=== PATIENT | female | born 1940 | race Caucasian/White ===

== ENCOUNTER 2018-03-08 00:38 | Inpatient (IN) | payer MEDICARE, OTHER ==
[2018-03-07 14:37] LABS: INR 0.99
--- NOTE | 2018-03-07 21:38 | HISTORY AND PHYSICAL ---
DATE OF ADMISSION: March 08, 2018 IDENTIFICATION/CHIEF COMPLAINT Lainey is a 77-year-old woman with the chief complaint of right hip pain. HISTORY OF PRESENT ILLNESS Patient has a long-standing history of hip arthritis which has been debilitating and refractory to conservative care. Surgery indicated to relieve symptoms after failure of nonoperative measures. PAST MEDICAL HISTORY 1. Hypertension. 2. Occasional skipped beats. 3. Sleep apnea. 4. Remote history of bronchitis and pneumonia. 5. Mild COPD. 6. Migraine headaches. PAST SURGICAL HISTORY 1. Tonsillectomy. 2. Appendectomy. 3. Treatment of uterine prolapse. 4. Bilateral tubal ligation. ALLERGIES No known drug allergies. CURRENT MEDICATIONS 1. Lovastatin 40 mg p.o. q. day. 2. Amlodipine 5 mg p.o. q. day. 3. Furosemide 20 mg p.o. q. day. 4. Mobic 15 mg p.o. q. day. 5. Oxybutynin 5 mg p.o. q. day. 6. Zyrtec as needed. 7. Variety of vitamins. SOCIAL HISTORY Notable for significant history of smoking three packs a day for 30 years, quitting in 1990. Alcohol use is rare. She previously drank socially on a moderate basis. Denies abuse. REVIEW OF SYSTEMS Otherwise negative. FAMILY HISTORY Notable for mother with COPD and father with lung disease. PHYSICAL EXAMINATION GENERAL: Elderly female. HEENT: She is normocephalic, atraumatic. NECK: Supple. LUNGS: Clear. HEART: Regular. ABDOMEN: Soft. ORTHOPEDIC: Right hip has exquisite pain with combined flexion and rotation. She is stiff at the end range. Hip girdle strength is grossly normal. Skin envelope is intact. Calf is nontender. Neurovascular function intact distally. ASSESSMENT Right hip end-stage degenerative joint disease, progressively painful and debilitating, refractory to conservative care. PLAN Per patient request, we are going to proceed with total hip arthroplasty. Nature of the procedure, risks, benefits, the anticipated rehabilitative course reviewed. Appropriate preoperative medical clearance has been obtained. Risks of the procedure include, but are not limited to , major medical or anesthetic complication, infection, neurovascular injury, blood transfusion, stiffness, scarring, fracture, tendon rupture, instability, leg length discrepancy, implant loosening, migration, or failure, persistent or recurrent pain, need for additional surgery, and other unforeseen. She understands and wishes to proceed. Signed permit is placed in the chart. No guarantees are given or implied. [facility], [place]
[~2018-03-08] VITALS: Ht 162.6 cm; Wt 83.0 kg
[2018-03-08] VITALS (10 sets, daily range): BP systolic 114–166; BP diastolic 50–87
[~2018-03-08 00:38] MED LIST: AMLO-111 PO; CETI10CA8 PO; FURO-45 PO; LOVA40TA89 PO; MELO-207 PO; OXYB1PAT PO; ceFAZolin(*) 2GM/D5W 50ML 50 ML IVPB ONE
[2018-03-08] MEDS ORDERED: ceFAZolin(*) 2GM/D5W 50ML 50 ML IVPB ONE ×2 (08:00→08:30)
[2018-03-08] MEDS ORDERED: TRANEXAMIC AC 1000 MG/10ML SDV 1,000 MG in DEXTROSE 5% 50 ML BAG 50 ML IV ONE ×2 (08:00→09:00)
[2018-03-08] MEDS ORDERED: CELECOXIB 200 MG CAP PO ONE (08:00)
[2018-03-08] MEDS ORDERED: ACETAMINOPHEN 500 MG TAB PO ONE (08:00)
[2018-03-08] MEDS ORDERED: LIDOCAINE/SOD BICARB 8.4% SYR ID ONE (08:00)
[2018-03-08] MEDS ORDERED: cloNIDine EPIDUR INJ 100MCG/ML 40 MCG, ROPIVACAINE 0.5% 20 ML VIAL 25 ML, EPINEPHrine H... INJ ONE ×2 (08:00→09:00)
[2018-03-08] MEDS ORDERED: PREGABALIN 75 MG CAPSULE PO ONE (08:00)
[2018-03-08] MEDS ORDERED: MIDAZOLAM 2 MG/2 ML VIAL IVP PRN (08:00)
[2018-03-08] MEDS ORDERED: NORMOSOL R SOLN(*) 1000 ML BAG 1,000 ML IV PRN ×2 (08:00→18:20)
[2018-03-08] MEDS ORDERED: FAMOTIDINE 20 MG TAB PO ONE (08:00)
[2018-03-08] MEDS ORDERED: ALBUTEROL/IPRATROPIUM 3 ML NEB ONE (12:45)
--- NOTE | 2018-03-08 13:05 | RADIOLOGY IMAGING REPORT ---
FACILITY: [facility] PATIENT NAME: Lainey Thayer : 1940 MR: [id number] V: [id number] EXAM DATE: ORDERING PHYSICIAN: INDY MOSES TECHNOLOGIST: Location: [facility] Patient: Lainey Thayer : 1940 Visit/Account:[id number] Date of Sevice: 03/08/2018 CHEST PA AND LAT INDICATION: PREOP TESTING COMPARISON: None available FINDINGS: The cardiac silhouette is enlarged. There is no focal infiltrate or lobar consolidation. The lungs are hyperexpanded. There is no pneumothorax or pleural effusion. IMPRESSION: 1. Cardiomegaly and COPD are noted, no acute process is identified Report Dictated By: Martinez Lagos at 03/08/2018 1:01 PM Report E-Signed By: Martinez Lagos at 03/08/2018 1:02 PM WSN:[id number]
[2018-03-08] MEDS ORDERED: VANCOMYCIN 1 GM VIAL ONE (15:13)
[2018-03-08] MEDS ORDERED: ONDANSETRON 4 MG/2 ML VIAL ONE (18:17)
[2018-03-08] MEDS ORDERED: PROPOFOL EMUL(*) 10MG/ML 20 ML 20 ML ONE (18:17)
[2018-03-08] MEDS ORDERED: ZOLPIDEM TARTRATE 5 MG TAB PO PRN (18:20)
[2018-03-08] MEDS ORDERED: BENZOCAINE/MENTHOL 1 EACH LOZG PO PRN (18:20)
[2018-03-08] MEDS ORDERED: diphenhydrAMINE 25 MG CAP PO PRN (18:20)
[2018-03-08] MEDS ORDERED: diphenhydrAMINE 50 MG/ML VIAL IVP PRN (18:20)
[2018-03-08] MEDS ORDERED: PROMETHAZINE 25 MG/ML 1 ML AMP IVP PRN (18:20)
[2018-03-08] MEDS ORDERED: ACETAMINOPHEN 325 MG TAB PO PRN (18:20)
[2018-03-08] MEDS ORDERED: MAGNESIUM HYDROXIDE* 30ML UDCP PO PRN (18:20)
[2018-03-08] MEDS ORDERED: DIAZEPAM 5 MG TAB PO PRN (18:20)
[2018-03-08] MEDS ORDERED: FLUSH 10 ML SYR IVP PRN (18:20)
[2018-03-08] MEDS ORDERED: BISACODYL 10 MG SUPP PR PRN (18:20)
--- NOTE | 2018-03-08 18:51 | RADIOLOGY IMAGING REPORT ---
FAC[place] [facility] [place]IENT NAME: Lainey Thayer : 1940 MR: [id number] V: [id number] EXAM DATE: ORDERING PHYSICIAN: ALESIA SÁNCHEZ TECHNOLOGIST: Location: Patient: Lainey Thayer : 1940 Visit/Account:[id number] Date of Sevice: 03/08/2018 PELVIS History: Status post right hip replacement. Severe arthropathy left hip. Comparison study: None. Findings: There has been recent placement of a right total hip prosthesis. Surgical skin clips are noted. There is air in the joint space and subcutaneous tissues related to recent surgery. There is diffuse osteopenia. There are severe findings of secondary osteoarthrosis involving the left hip with severe erosion of t he left femoral head, loss of joint space as well as subchondral sclerosis and subchondral cyst forma tion. The sacroiliac joints are unremarkable. IMPRESSION: 1. Status post recent right total hip replacement. 2. Findings of what appear to be severe and very advanced changes of secondary osteoarthrosis involv ing the left hip. Report Dictated By: Harman Sands MD at 03/08/2018 6:46 PM Report E-Signed By: Harman Sands MD at 03/08/2018 6:47 PM WSN:[email or web address]
--- NOTE | 2018-03-08 19:13 | OPERATIVE REPORT 1 ---
EVENT DATE: March 08, 2018 SURGEON: Benito Rojas MD ANESTHESIOLOGIST: Spencer Ortiz MD ANESTHESIA: General plus spinal. [employer]ER [employer]YING DE[employer]MENT: [facility] Doyle PREOPERATIVE DIAGNOSIS Right hip degenerative joint disease. POSTOPERATIVE DIAGNOSIS Right hip degenerative joint disease. PROCEDURE PERFORMED Right total hip arthroplasty. ESTIMATED BLOOD LOSS 400 mL DRAINS None. SPECIMENS None. COMPLICATIONS None apparent. INDICATIONS Lainey is a 77-year-old woman with end-stage hip arthritis which has been progressively painful and debilitating, refractory to conservative care. Surgery is indicated to relieve symptoms after failure of nonoperative measures. DESCRIPTION OF PROCEDURE Patient was taken to the operating room, placed supine on the operating table. General anesthesia is induced. Antibiotics are administered IV. Spinal block is placed preop by the anesthesiologist. TXA is administered IV. Patient is positioned in the left lateral decubitus on a well-padded pegboard. All bony prominences and superficial nerves are well padded. Right hip girdle and lower extremity are prepped and draped in the usual sterile fashion for orthopedic surgery. A posterolateral approach is made to the hip, carried down through the skin and subcutaneous tissue down to the deep fascia. Fascia is incised over the tip of the trochanter, extended distally in line with the femur, proximally in line with the luis fernando fibers. Luis Fernando fibers are split bluntly. Interval between the abductor and external rotator is identified. Abductor mechanism is protected with a blunt Hohmann. Trochanteric bursa is excised. The L capsulotomy/tenotomy is performed with the horizontal limb just above the piriformis. It is carried down through the capsule, and then the external rotators and capsule were peeled from superior to inferior off the posterolateral femur and tagged with #2 Vicryl for later anatomic reattachment. The femoral head is dislocated. Severe collapse of the femoral head is noted along with end-stage arthritic change. A 1.5 cm neck cut is made consistent with preoperative templating. The femoral head is extracted. Femur is translocated anteriorly. Sienna-acetabular retractors are placed with the tips down on bone. Her bone quality is quite poor around the socket, and there are some spurs and edges of the rim that tend to easily crack and chip. The pulvinar and labrum are excised. A 44 mm reamer is used to medialize the true medial wall of the acetabulum. This is expanded in 2 mm increments up to 52 where seemingly nice rim contact is obtained. The trial is inserted, and this seems to have satisfactory fit. As this is extracted, a fragment of the posterior wall peripherally pulls away with this. It may just be osteophyte, but in order to obtain adequate capture of the cup, I decided to medialize further down to the periosteum at the level of the true medial wall of the acetabulum. This is re-expanded up to 53 mm with a reamer, and then a 54 Tritanium shell is selected to optimize bone contact, stability, and ingrowth along with a cluster shell. This is impacted in approximately 40 degrees of lateral opening and 20 degrees of anteversion using internal bony landmarks, extracorporeal guide, and the transverse acetabular ligament to guide socket placement. Adjuvant fixation with two screws directed up into the posterior superior bone is performed using standard technique. Solid fixation is achieved. Due to medialization, an offset eccentric liner is impacted into the cleaned and dried shell to restore normal offset. Attention is turned to femoral preparation. Superior neck is resected with a cookie cutter. A Charnley awl finds the canal. Tapered broaching is performed starting with an 0, working up to a size 6 where good stability of the broach is achieved. Trial reduction is performed off this. Good mu-ism of limb length and stability are achievable. In this circumstance, we are actually going to make her about a centimeter or so as the other hip is also severely collapsed and will eventually require reconstruction. More focus is placed on stability and soft tissue tension. The broach is extracted. The actual stem is impacted and seats at the same height. Trial reduction is performed with various neck lengths, and the standard neck length seems optimal for mu-ism of stability and appropriate limb length. The Aldridge taper is lavaged and dried. The Biolox head is impacted into position. The joint is reduced. Pain cocktail is infiltrated throughout the wound. The wound is copiously lavaged, and meticulous hemostasis is assured. Capsule and external rotators are repaired through drill holes in the posterolateral femur with the previously placed #2 Vicryl. Deep fascia is closed distally with #2 Ethibond, proximally with #2 Vicryl after placement of vancomycin powder deep in the wound. Derm is closed with 3-0 Vicryl and skin with surgical iveth. Xeroform is applied for a dry, sterile dressing and hip wrap. Patient is rolled supine. Abduction pillow is placed. She is awakened from anesthesia and taken to the recovery room in stable condition having tolerated the procedure well. Plan is for standard ROBERT rehab protocol, weightbearing as tolerated, and posterior hip precautions. [facility]
[2018-03-08] MEDS ORDERED: OXYB5TAB86 PO (19:45)
--- NOTE | 2018-03-08 19:53 | Hospitalist Progress Note ---
Subjective Progress Notes Subjective No cp/sob. 50cc of EBL. 1300cc of crystalloid, TXA and ephedrine given intra- op. Physical Exam Vital Signs Date Time Temp Pulse Resp B/P (MAP) Pulse Ox O2 Delivery O2 Flow Rate FiO2 03/08/18 19:00 68 96 03/08/18 18:45 20 03/08/18 12:48 Nasal Cannula 3.0 03/08/18 12:41 98.6 166/79 (108) General Appearance: Alert, Awake, No Acute Distress Cardiovascular: Regular Rate and Rhythm Respiratory: Clear to Auscultation Extremities: No Edema Assessment and Plan Problems: (1) Status post hip replacement Status: Acute Assessment & Plan: No CV/pulmonary issues. No h/o DVT/PE. The patient will be on ASA 325mg a day for 30 days after surgery for blood clot prevention. (2) Hyperlipemia Status: Chronic Assessment & Plan: Continue chronic simvastatin. (3) HTN (hypertension) Status: Chronic Assessment & Plan: Continue chronic amlodipine and furosemide with parameters. (4) OAB (overactive bladder) Status: Chronic Assessment & Plan: Continue chronic oxybutynin. Problem Qualifiers (1) Status post hip replacement: Laterality: right Qualified Codes: Z96.641 - Presence of right artificial hip joint YAHIR ADAMS MD Mar 08, 2018 19:52
[2018-03-08] MEDS: amLODIPine BESYL(*) 5 MG TAB PO SCH (21:00)
[2018-03-08] MEDS: APAP/HYDROCODONE 325/7.5 TAB PO PRN (21:54)
[2018-03-08] MEDS: LOVASTATIN 20 MG TAB PO SCH (21:55)
[2018-03-08] MEDS: OXYBUTYNIN CHL 5 MG TAB PO SCH (21:55)
[2018-03-09] VITALS (9 sets, daily range): BP systolic 105–128; BP diastolic 51–66; Ht 162.6 cm; Wt 83.0 kg
[2018-03-09] MEDS ORDERED: NS(*) 0.9% 250 ML BAG 250 ML ONE (00:03)
[2018-03-09] MEDS: ceFAZolin(*) 1 GM VIAL 1 GM in NS(*) 0.9% 100 ML ADDVANT BAG 100 ML IVPB SCH ×3 (00:31→16:13)
[2018-03-09] MEDS: CELECOXIB 200 MG CAP PO SCH ×2 (08:14→16:21)
[2018-03-09] MEDS: FUROSEMIDE 20 MG TAB PO SCH (08:17)
[2018-03-09] MEDS: APAP/HYDROCODONE 325/7.5 TAB PO PRN ×2 (08:18→23:35)
[2018-03-09] MEDS: OXYBUTYNIN CHL 5 MG TAB PO SCH ×2 (08:18→21:31)
[2018-03-09] MEDS: ASPIRIN 325 MG TAB PO SCH (08:18)
--- NOTE | 2018-03-09 11:50 | Hospitalist Progress Note ---
Subjective Progress Notes Subjective She has no complaints this morning. She had no acute events overnight. Patient Complains of: Cardiovascular: No: Chest Pain Respiratory: No: Shortness of Breath Physical Exam Vital Signs Date Time Temp Pulse Resp B/P (MAP) Pulse Ox O2 Delivery O2 Flow Rate FiO2 03/09/18 10:00 89 Nasal Cannula 3.0 03/09/18 08:24 98.5 62 16 110/51 (70) Intake and Output 03/08/18 23:59 Intake Total 1400 ml Balance 1400 ml IV Total 1400 ml # Voids 2 General Appearance: Alert, Awake, No Acute Distress, Afebrile Neuro: No Gross deficits Cardiovascular: Regular Rate and Rhythm Respiratory: No Respiratory Distress, Clear to Auscultation Psych: Alert & Oriented X3, Appropriate Mood & Affect Assessment and Plan Problems: (1) Status post hip replacement Status: Acute Assessment & Plan: No CV/pulmonary issues. No h/o DVT/PE. The patient will be on ASA 325mg a day for 30 days after surgery for blood clot prevention. (2) Hyperlipemia Status: Chronic Assessment & Plan: Continue chronic simvastatin. (3) HTN (hypertension) Status: Chronic Assessment & Plan: Continue chronic amlodipine and furosemide with parameters. (4) OAB (overactive bladder) Status: Chronic Assessment & Plan: Continue chronic oxybutynin. Exam Sepsis Risk: No Definite Risk Problem Qualifiers (1) Status post hip replacement: Laterality: right Qualified Codes: Z96.641 - Presence of right artificial hip joint CLARK PORTER [facility] Mar 09, 2018 11:50
[2018-03-09] MEDS ORDERED: HYDR-654 PO (12:16)
[2018-03-09] MEDS: amLODIPine BESYL(*) 5 MG TAB PO SCH (21:31)
[2018-03-09] MEDS: LOVASTATIN 20 MG TAB PO SCH (21:31)
[2018-03-10 03:47] VITALS: BP 114/61
[2018-03-10 06:52] VITALS: BP 153/69
[2018-03-10] MEDS: FUROSEMIDE 20 MG TAB PO SCH (08:26)
[2018-03-10] MEDS: CELECOXIB 200 MG CAP PO SCH (08:26)
[2018-03-10] MEDS: ASPIRIN 325 MG TAB PO SCH (08:26)
[2018-03-10] MEDS: OXYBUTYNIN CHL 5 MG TAB PO SCH (08:27)
--- NOTE | 2018-03-10 08:55 | Hospitalist Progress Note ---
Subjective Progress Notes Subjective She has no complaints this morning. She had no acute events overnight. Patient Complains of: Cardiovascular: No: Chest Pain Respiratory: No: Shortness of Breath Physical Exam Vital Signs Date Time Temp Pulse Resp B/P (MAP) Pulse Ox O2 Delivery O2 Flow Rate FiO2 03/10/18 08:43 84 03/10/18 06:52 97.5 72 15 153/69 (97) Nasal Cannula 2.5 Intake and Output 03/10/18 06:59 Intake Total 452 ml Balance 452 ml Intake Oral 342 ml IV Total 110 ml # Voids 5 General Appearance: Alert, Awake, No Acute Distress, Afebrile Neuro: No Gross deficits Cardiovascular: Regular Rate and Rhythm Respiratory: No Respiratory Distress, Clear to Auscultation Psych: Alert & Oriented X3, Appropriate Mood & Affect Assessment and Plan Problems: (1) Status post hip replacement Status: Acute Assessment & Plan: No CV/pulmonary issues. No h/o DVT/PE. The patient will be on ASA 325mg a day for 30 days after surgery for blood clot prevention. (2) Hyperlipemia Status: Chronic Assessment & Plan: Continue chronic simvastatin. (3) HTN (hypertension) Status: Chronic Assessment & Plan: Continue chronic amlodipine and furosemide with parameters. (4) OAB (overactive bladder) Status: Chronic Assessment & Plan: Continue chronic oxybutynin. Exam Sepsis Risk: No Definite Risk Problem Qualifiers (1) Status post hip replacement: Laterality: right Qualified Codes: Z96.641 - Presence of right artificial hip joint [facility] Mar 10, 2018 08:55
[2018-03-10] MEDS ORDERED: ASPI-757 PO (10:37)
== END 2018-03-10 13:45 | disposition home or self-care (01) | DRG 470 ==
LOC: OR 00:38 → MED 19:30
PROVIDERS: ADMIT Orthopaedic Surgery; ATTEND Orthopaedic Surgery
PROC: 5A09357 Assistance with Respiratory Ventilation, Less than 24 Consecutive Hours, Continuous Positive Airway Pressure (ICD-10-PCS; 2018-03-08)
PROC: 0SR901Z Replacement of Right Hip Joint with Metal Synthetic Substitute, Open Approach (ICD-10-PCS; principal; 2018-03-08 15:56)
DX: M16.11 Unilateral primary osteoarthritis, right hip (principal); G47.33 Obstructive sleep apnea (adult) (pediatric); I10 Essential (primary) hypertension; N32.81 Overactive bladder; Z87.891 Personal history of nicotine dependence; J44.9 Chronic obstructive pulmonary disease, unspecified; G43.909 Migraine, unspecified, not intractable, without status migrainosus; E78.5 Hyperlipidemia, unspecified
CPT/HCPCS: 36415; 71046; 72170; 85610; 86850; 86900; 86901; 94640; 97161; 97165; C1713; C1776; J0171; J0690; J0735; J1885; J2250; J2405; J2704; J2795; J3370; J7050; J7060

== ENCOUNTER 2018-03-17 16:19 | Inpatient (IN) | payer MEDICARE, OTHER ==
[~2018-03-17] VITALS: Ht 162.6 cm; Wt 83.9 kg
--- NOTE | 2018-03-17 15:55 | HISTORY AND PHYSICAL ---
DATE OF ADMISSION: March 17, 2018 IDENTIFICATION/CHIEF COMPLAINT Lainey is a 77-year-old woman with the chief complaint of right hip pain. HISTORY OF PRESENT ILLNESS Patient is nine days out from total hip arthroplasty. She was doing extremely well, discharged on , until the Wednesday following when she was in her doorway reaching for a snow shovel. She twisted and backed up and had immediate pain in the right hip region with some difficulty bearing weight. Subsequently, she was evaluated at the clinic, and radiographs revealed a periprosthetic subtrochanteric/intertrochanteric fracture of the femur with movement of the stem. Admission is indicated in preparation for revision surgery and repair of the fracture. PAST MEDICAL HISTORY, PAST SURGICAL HISTORY, FAMILY HISTORY, SOCIAL HISTORY, AND REVIEW OF SYSTEMS Entirely unchanged from the recent H and P dictated immediately prior to her operation nine days ago. MEDICATIONS The only new medications have been: 1. Hydrocodone as needed for pain. 2. Aspirin 325 mg p.o. q. day. PHYSICAL EXAMINATION GENERAL: This is a healthy female. HEENT: She is normocephalic, atraumatic. NECK: Supple. LUNGS: Clear. HEART: Regular. ABDOMEN: Soft. ORTHOPEDIC: The right hip incision has healed nicely with no signs of infection. Some swelling and bruising. Staple line remains intact. She is tender and is unable to straight leg raise. She has pain with attempted range of motion of the hip. Calves are nontender. Neurovascular function intact. IMAGING Radiographs reveals a minimally displaced fracture at about mid stem level through the subtrochanteric region best visualized at the medial cortex. The stem has subsided from its initial position. Acetabular fixation and placement are unchanged from immediate postop. ASSESSMENT Right hip periprosthetic proximal femur fracture, status post total hip arthroplasty. PLAN Will plan to revise the femoral stem to a distally fixed stem, modular reconstruction implant with concomitant cable repair and possible allograft strut grafting for the fracture. Rationale, risks, benefits, and alternatives were discussed at length with patient and family, and they strongly agree and would like to proceed. A signed permit is placed in the chart. No guarantees given or implied. [facility]
[~2018-03-17 16:19] MED LIST changes: +ASPI-757 PO; +HYDR-654 PO; +OXYB5TAB86 PO; -ceFAZolin(*) 2GM/D5W 50ML 50 ML IVPB ONE
[2018-03-17 17:04] VITALS: BP 125/60
--- NOTE | 2018-03-17 17:21 | Hospitalist Progress Note ---
Subjective Progress Notes Subjective The patient misstepped a couple of days ago and has a lot of pain in the leg that had the hip replacement. She was admitted for revision of the hip and ORIF of fracture. No cp/sob. Otherwise, doing well. Physical Exam Vital Signs Date Time Temp Pulse Resp B/P (MAP) Pulse Ox O2 Delivery O2 Flow Rate FiO2 03/17/18 17:04 98.8 91 16 125/60 (81) 91 Nasal Cannula 3.0 General Appearance: Alert, Awake, No Acute Distress Cardiovascular: Regular Rate and Rhythm Respiratory: Clear to Auscultation Extremities: No Edema Assessment and Plan Problems: (1) Status post hip replacement Status: Acute Assessment & Plan: She had a right ROBERT on 03/08 (9 days prior to admission). A couple of days ago she had a misstep and immediately had pain. Yesterday, in clinic, radiographs revealed a periprosthetic subtrochanteric/intertrochanteric fracture of the femur with movement of the stem. She is going to have revision surgery and repair of the fracture tomorrow. She has had no changes in her overall health or medical history since discharge. No cp/sob. She took ASA today, but will hold for tomorrow. She will be on ASA for DVT/PE prophylaxis. (2) HTN (hypertension) Status: Chronic Assessment & Plan: Continue chronic amlodipine and furosemide with parameters. (3) OAB (overactive bladder) Status: Chronic Assessment & Plan: Continue chronic oxybutynin. (4) Hyperlipemia Status: Chronic Assessment & Plan: Continue chronic lovastatin. Problem Qualifiers (1) Status post hip replacement: Laterality: right Qualified Codes: Z96.641 - Presence of right artificial hip joint YAHIR ADAMS MD Mar 17, 2018 17:21
[2018-03-17] MEDS ORDERED: ceFAZolin 1 GM VIAL IVP ONE (17:25)
[2018-03-17] MEDS ORDERED: LR(*) 1000 ML BAG 1,000 ML IV PRN (17:25)
[2018-03-17 19:03] VITALS: BP 131/72
[2018-03-17] MEDS ORDERED: MAGNESIUM HYDROXIDE* 30ML UDCP PO PRN (19:35)
[2018-03-17] MEDS: POLYETHYLENE GLYCOL 17 GM PKT PO SCH (19:35)
[2018-03-17] MEDS ORDERED: BISACODYL 10 MG SUPP PR PRN (19:35)
[2018-03-17 19:47] LABS: PLATELET COUNT, AUTOMATED 368 K/uL (150-450)
[2018-03-17] MEDS: LOVASTATIN 20 MG TAB PO SCH (21:46)
[2018-03-17] MEDS: OXYBUTYNIN CHL 5 MG TAB PO SCH (21:46)
[2018-03-17] MEDS: DOCUSATE SODIUM 100 MG CAP PO SCH (21:46)
[2018-03-17] MEDS: amLODIPine BESYL(*) 5 MG TAB PO SCH (21:47)
[2018-03-17] MEDS ORDERED: APAP/HYDROCODONE 325/7.5 TAB PO ONE (22:40)
[2018-03-18] VITALS (9 sets, daily range): BP systolic 102–140; BP diastolic 53–86; Ht 162.6 cm; Wt 83.9 kg
[2018-03-18] MEDS: OXYBUTYNIN CHL 5 MG TAB PO SCH ×2 (09:00→21:42)
[2018-03-18] MEDS: FUROSEMIDE 20 MG TAB PO SCH (09:00)
[2018-03-18] MEDS: POLYETHYLENE GLYCOL 17 GM PKT PO SCH (09:00)
[2018-03-18] MEDS: DOCUSATE SODIUM 100 MG CAP PO SCH ×2 (09:00→21:43)
--- NOTE | 2018-03-18 11:32 | Hospitalist Progress Note ---
Subjective Progress Notes Subjective She is going to surgery this afternoon to have hip repaired. She has no complaints this morning. Patient Complains of: Cardiovascular: No: Chest Pain Respiratory: No: Shortness of Breath Physical Exam Vital Signs Date Time Temp Pulse Resp B/P (MAP) Pulse Ox O2 Delivery O2 Flow Rate FiO2 03/18/18 11:16 72 18 123/58 (79) 93 Nasal Cannula 4.0 03/18/18 07:45 97.6 General Appearance: Alert, Awake, No Acute Distress, Afebrile Neuro: No Gross deficits Cardiovascular: Regular Rate and Rhythm Respiratory: No Respiratory Distress, Other (expiratory wheezes noted to the left upper lung) Result Diagram: 03/17/18193703/17/181937 Assessment and Plan Problems: (1) Status post hip replacement Status: Acute Assessment & Plan: She had a right ROBERT on 03/08 (9 days prior to admission). A couple of days ago she had a misstep and immediately had pain. Yesterday, in clinic, radiographs revealed a periprosthetic subtrochanteric/intertrochanteric fracture of the femur with movement of the stem. She is going to have revision surgery and repair of the fracture tomorrow. She has had no changes in her overall health or medical history since discharge. No cp/sob. She took ASA 03/17, but will hold today. She will be on ASA for DVT/PE prophylaxis. (2) HTN (hypertension) Status: Chronic Assessment & Plan: Continue chronic amlodipine and furosemide with parameters. Will hold today for NPO status for surgery. (3) OAB (overactive bladder) Status: Chronic Assessment & Plan: Continue chronic oxybutynin. Will hold today for NPO status for surgery. (4) Hyperlipemia Status: Chronic Assessment & Plan: Continue chronic lovastatin. Exam Sepsis Risk: No Definite Risk Problem Qualifiers (1) Status post hip replacement: Laterality: right Qualified Codes: Z96.641 - Presence of right artificial hip joint CLARK PORTER DIRECTOR [employer] Mar 18, 2018 11:32
[2018-03-18] MEDS ORDERED: FAMOTIDINE(*) 20MG/50ML PREMIX 50 ML IVPB ONE (11:35)
[2018-03-18] MEDS ORDERED: NORMOSOL R SOLN(*) 1000 ML BAG 1,000 ML IV PRN (11:45)
[2018-03-18] MEDS ORDERED: fentaNYL CITR 250 MCG/5 ML AMP ONE (14:05)
[2018-03-18] MEDS ORDERED: LIDOCAINE 2% IV 100 MG/5ML SYR ONE (14:06)
[2018-03-18] MEDS ORDERED: PROPOFOL EMUL(*) 10MG/ML 20 ML 20 ML ONE (14:06)
[2018-03-18] MEDS ORDERED: ceFAZolin(*) 1 GM VIAL 1 GM in NS(*) 0.9% 100 ML ADDVANT BAG 100 ML IV ONE (14:15)
[2018-03-18] MEDS ORDERED: ceFAZolin(*) 1 GM VIAL 3 GM in NS(*) 0.9% 100 ML BAG 100 ML IVPB ONE (14:15)
[2018-03-18] MEDS ORDERED: LIDOCAINE/SOD BICARB 8.4% SYR ONE (15:13)
[2018-03-18] MEDS ORDERED: MIDAZOLAM 2 MG/2 ML VIAL ONE (16:29)
[2018-03-18] MEDS ORDERED: ROPIVACAINE/EPI/CLONIDINE/KET 50 ML SYRINGE INJ ONE (16:35)
[2018-03-18] MEDS ORDERED: TRANEXAMIC AC 1000 MG/10ML SDV 1,000 MG in DEXTROSE 5% 50 ML BAG 50 ML IV ONE (16:35)
[2018-03-18] MEDS ORDERED: DEXAMETHASONE SOD PHOS 10MG/ML ONE (17:14)
[2018-03-18] MEDS ORDERED: LACTATED RINGER 3000 ML BAG IR ONE (17:33)
[2018-03-18] MEDS ORDERED: ONDANSETRON 4 MG/2 ML VIAL ONE (17:40)
--- NOTE | 2018-03-18 20:35 | RADIOLOGY IMAGING REPORT ---
FACILITY: [facility] - [place] PATIENT NAME: Lainey Thayer : 1940 MR: [id number] V: [id number] EXAM DATE: ORDERING PHYSICIAN: ALESIA SÁNCHEZ TECHNOLOGIST: Location: Patient: Lainey Thayer : 1940 Visit/Account:[id number] Date of Sevice: 03/18/2018 ADDENDUM #1 Please note the impression should read: 1. Interval revision of a right hip arthroplasty. There is an acute oblique fracture involving the pr oximal right femoral metadiaphysis. Report Dictated By: Asim Bradley DO at 03/22/2018 2:27 PM Report E-Signed By: Asim Bradley DO at 03/22/2018 2:28 PM ORIGINAL REPORT Technique: PELVIS HISTORY: POST OP REVISION R ROBERT Comparison studies: Right hip radiograph March 08, 2018 FINDINGS: There has been interval revision of a right hip arthroplasty. There is gross anatomic align ment. An acute, oblique fracture is noted within the proximal right femoral metadiaphysis. Advanced d egenerative changes are noted within the left hip. Expected adjacent operative findings are present n ear the right hip. IMPRESSION: 1. Interval revision of a right hip arthroplasty. There is an acute left oblique fracture involving the proximal right femoral metadiaphysis. 2. Advanced degenerative changes within the left hip. Report Dictated By: Asim Bradley DO at 03/18/2018 8:28 PM Report E-Signed By: Asim Bradley DO at 03/18/2018 8:32 PM WSN:[id number]
[2018-03-18] MEDS: LOVASTATIN 20 MG TAB PO SCH (21:43)
[2018-03-18] MEDS: amLODIPine BESYL(*) 5 MG TAB PO SCH (21:43)
--- NOTE | 2018-03-18 22:07 | OPERATIVE REPORT 1 ---
EVENT DATE: March 18, 2018 SURGEON: Benito Rojas MD ANESTHESIOLOGIST: Brad Rivas MD ANESTHESIA: General plus spinal. PHP [employer] DEVELOPER: YG Hernandez PREOPERATIVE DIAGNOSIS Right periprosthetic subtrochanteric proximal femur fracture, status post total hip arthroplasty. POSTOPERATIVE DIAGNOSIS Right periprosthetic subtrochanteric proximal femur fracture, status post total hip arthroplasty. PROCEDURES PERFORMED 1. Revision of total hip arthroplasty, femoral component only. 2. Open reduction, internal fixation of subtrochanteric proximal femur fracture. ESTIMATED BLOOD LOSS 200 mL DRAINS None. SPECIMENS None. COMPLICATIONS None apparent. IMPLANTS USED Mosque Modular Moffett hip stem with a 155 stem length, 17 mm distal diameter, a size 19 mm standard height V40 taper proximal body, and a Biolox Delta Ceramic V40 femoral head, a 36 mm standard neck length. A 2.0 mm beaded Dall-Miles cable and sleeve set is used for repair of the fracture. NAIMA Jasmine is presently 10 days out from her index hip arthroplasty. At time of surgery, she was noted to have significant osteopenia, but solid fixation. She was ambulating and doing extremely well until this past Wednesday when she twisted in a doorway while pulling on a shovel and had immediate pain. Subsequent clinic visit revealed fracture and movement of the femoral stem. Surgery is indicated to restore stability, allow optimal function, and mobilize patient. DESCRIPTION OF PROCEDURE Patient is taken to the operating room and placed supine on the operating table. Spinal block is administered by the anesthesiologist. General anesthesia induced. Antibiotics and TXA are administered IV. Patient is positioned in left lateral decubitus on a well-padded pegboard. All bony prominences and superficial nerves are well padded. Right hip, groin, and lower extremity are prepped and draped in the usual sterile fashion for hip arthroplasty. The old incision is opened and extended an inch or two proximally and distally. Due to the early postoperative condition, dissection through the subcutaneous plane is easy. A small hematoma is evacuated, and swabs are obtained for culture just as a safety measure. There is no indication that this is infected. The deep fascia is intact. The sutures are removed meticulously, and then the sutures are removed for the repair of the external rotators. The joint is exposed. The fracture site is readily evident. The bone hook is used to dislocate the hip, and old head is disimpacted. Threaded back-slapping device is inserted into the implant, and this is extracted with gentle blows. The wound is copiously lavaged. All hematoma is removed. The socket appears just fine. Next, starting awl is placed down the canal and then tapered. Reaming is performed until there is adequate endosteal contact at the height for the minimum stem length for potential 220. The distal stem is then impacted until this seats at the minimum depth for the 220 length, and firm fixation with the flutes is obtained with good rotational stability. The appropriate jig is inserted to the distal stem, and the minimum 19 mm proximal cutter is used to assure adequate space for the proximal body, and then the 19 mm standard height proximal body is applied and provisionally fixed in place at about 20 degrees of anteversion for trial reductions. Trial head is applied, and mormon of limb length and stability are achievable. The large subtrochanteric calcar fragment can easily be brought back into position and in contact with the area where the porous coating will be on the final implant. The wound is then copiously lavaged, and the actual stem is impacted. Proximal body is impacted onto the Aldridge taper and stem and seats at the appropriate height. This is then held at 20 degrees of anteversion with the appropriate device and torqued into position. The locking screw is then set. Trial reduction is performed with various neck lengths, and the 36 mm standard neck length seems optimal for mormon of the limb length and stability. The Aldridge taper is lavaged and dried, and the actual head is impacted into position. This completes the revision of the femoral stem. Next, using a Hohmann, the fracture fragment is brought back into position. This is easiest with the hip reduced to reduce the pull on the iliopsoas on the lesser trochanter. This is reduced within reasonable proximity, and then the passing device for the Dall-Miles cable is brought into position around the primary subtrochanteric fracture fragment. Care is taken to stay close to bone to avoid entrapment of any critical soft tissue structures when the Dall-Miles cable is passed. This is then repeated. The same cable can be wrapped around twice. It is then brought out through the crimping device, and the tension is applied. The fracture fragment is held reduced as the cable provides compression to the femoral implant, and the fracture line is essentially anatomically restored with the single cable. Both the cable passes are kept above the level of the lesser trochanter to avoid strangulating any critical soft tissues. Satisfactory stability is attained with a single cable. The joint is subsequently ranged and felt to have nice range of motion, good mormon of soft tissue tension, and stability. At this point, the old drill holes in the posterolateral trochanter are identified. Tafoya is passed through, and the sutures in the capsule which were placed for tags which are #2 Vicryl are brought up and tied back to add additional stability and repair soft tissue along the posterior capsular region. Vancomycin powder is placed into the wound after copiously lavaging. Hemostasis was assured. The subcutaneous tissue and skin are freshened with a curette and blade to assure adequate healing. Deep fascia is closed with #2 Ethibond distally, #2 Vicryl proximally, the dermis with 3-0 Vicryl, and the skin with surgical iveth. Xeroform is applied for a dry, sterile dressing and a hip wrap. Patient is rolled supine. Abduction pillow is placed. She is awakened from anesthesia and taken to the recovery room in stable condition having tolerated the procedure well. PLAN Plan is going to be for weightbearing as tolerated. Will avoid strengthening for six to eight weeks until there is radiographic evidence of healing of the fracture. Posterior hip precautions and full weightbearing are fine. Patient is subsequently transferred to the recovery room in stable condition having tolerated the procedure well. [facility]
[2018-03-18] MEDS: MORPHINE 2 MG/ML SYR IVP PRN (23:14)
[2018-03-19] VITALS (7 sets, daily range): BP systolic 108–140; BP diastolic 51–66
[2018-03-19] MEDS: MORPHINE 2 MG/ML SYR IVP PRN ×2 (00:30→02:50)
[2018-03-19] MEDS ORDERED: ACETAMINOPHEN 325 MG TAB PO PRN (04:30)
[2018-03-19] MEDS ORDERED: PROMETHAZINE 25 MG/ML 1 ML AMP IVP PRN (04:30)
[2018-03-19] MEDS ORDERED: BISACODYL 10 MG SUPP PR PRN (04:30)
[2018-03-19] MEDS ORDERED: BENZOCAINE/MENTHOL 1 EACH LOZG PO PRN (04:30)
[2018-03-19] MEDS ORDERED: diphenhydrAMINE 25 MG CAP PO PRN (04:30)
[2018-03-19] MEDS ORDERED: NORMOSOL R SOLN(*) 1000 ML BAG 1,000 ML IV PRN (04:30)
[2018-03-19] MEDS ORDERED: DIAZEPAM 5 MG TAB PO PRN (04:30)
[2018-03-19] MEDS ORDERED: ZOLPIDEM TARTRATE 5 MG TAB PO PRN (04:30)
[2018-03-19] MEDS ORDERED: MAGNESIUM HYDROXIDE* 30ML UDCP PO PRN (04:30)
[2018-03-19] MEDS ORDERED: FLUSH 10 ML SYR IVP PRN (04:30)
[2018-03-19] MEDS ORDERED: diphenhydrAMINE 50 MG/ML VIAL IVP PRN (04:30)
[2018-03-19] MEDS ORDERED: MORPHINE 2 MG/ML SYR IVP PRN (04:30)
[2018-03-19] MEDS: ceFAZolin(*) 1 GM VIAL 1 GM in NS(*) 0.9% 100 ML ADDVANT BAG 100 ML IVPB SCH ×3 (04:42→21:18)
[2018-03-19] MEDS: APAP/HYDROCODONE 325/7.5 TAB PO PRN ×3 (04:42→23:03)
[2018-03-19 07:46] LABS: PLATELET COUNT, AUTOMATED 326 K/uL (150-450)
[2018-03-19] MEDS: POLYETHYLENE GLYCOL 17 GM PKT PO SCH (08:44)
[2018-03-19] MEDS: FUROSEMIDE 20 MG TAB PO SCH (08:44)
[2018-03-19] MEDS: DOCUSATE SODIUM 100 MG CAP PO SCH ×2 (08:44→21:18)
[2018-03-19] MEDS: ASPIRIN 325 MG TAB PO SCH (08:44)
[2018-03-19] MEDS: OXYBUTYNIN CHL 5 MG TAB PO SCH ×2 (08:44→21:19)
[2018-03-19] MEDS: CELECOXIB 200 MG CAP PO SCH ×2 (08:44→16:33)
--- NOTE | 2018-03-19 10:17 | Hospitalist Progress Note ---
Subjective Progress Notes Subjective No specific complaints today. Physical Exam Vital Signs Date Time Temp Pulse Resp B/P (MAP) Pulse Ox O2 Delivery O2 Flow Rate FiO2 03/19/18 07:52 91 Nasal Cannula 2.0 03/19/18 06:52 97.5 73 18 123/59 (80) Intake and Output 03/19/18 06:58 Intake Total 2050 ml Output Total 2000 ml Balance 50 ml Intake Oral 100 ml IV Total 1950 ml Output Urine Total 1800 ml Estimated Blood Loss 200 ml General Appearance: Alert, Awake Cardiovascular: Regular Rate and Rhythm Respiratory: Clear to Auscultation Result Diagram: 03/19/18 0738 03/17/18 1938 Assessment and Plan Problems: (1) Status post hip replacement Status: Acute Assessment & Plan: She had a right ROBERT on 03/08 (9 days prior to admission). A couple of days prior to admission she had a misstep and immediately had pain. Radiographs revealed a periprosthetic subtrochanteric/intertrochanteric fracture of the femur with movement of the stem. She had repair of the fracture yesterday. She is on ASA for DVT/PE prophylaxis. (2) HTN (hypertension) Status: Chronic Assessment & Plan: Continue chronic amlodipine and furosemide with parameters. (3) OAB (overactive bladder) Status: Chronic Assessment & Plan: Continue chronic oxybutynin. DC Cotter cath today. (4) Hyperlipemia Status: Chronic Assessment & Plan: Continue chronic lovastatin. Exam Sepsis Risk: No Definite Risk Problem Qualifiers (1) Status post hip replacement: Laterality: right Qualified Codes: Z96.641 - Presence of right artificial hip joint MEMO BOWMAN MD Mar 19, 2018 10:17
[2018-03-19] MEDS ORDERED: NS(*) 0.9% 250 ML BAG 250 ML ONE (12:41)
[2018-03-19] MEDS: amLODIPine BESYL(*) 5 MG TAB PO SCH (21:00)
[2018-03-19] MEDS: LOVASTATIN 20 MG TAB PO SCH (21:23)
[2018-03-20 03:26] VITALS: BP 123/72
[2018-03-20 06:45] LABS: PLATELET COUNT, AUTOMATED 309 K/uL (150-450)
[2018-03-20] MEDS: CELECOXIB 200 MG CAP PO SCH ×2 (08:36→17:13)
[2018-03-20] MEDS: FUROSEMIDE 20 MG TAB PO SCH (08:36)
[2018-03-20] MEDS: ASPIRIN 325 MG TAB PO SCH (08:36)
[2018-03-20] MEDS: POLYETHYLENE GLYCOL 17 GM PKT PO SCH (08:36)
[2018-03-20] MEDS: OXYBUTYNIN CHL 5 MG TAB PO SCH ×2 (08:36→20:42)
[2018-03-20] MEDS: DOCUSATE SODIUM 100 MG CAP PO SCH ×2 (08:36→20:42)
[2018-03-20 08:39] VITALS: BP 112/82
--- NOTE | 2018-03-20 10:47 | Hospitalist Progress Note ---
Subjective Progress Notes Subjective 77F admitted for periprosthetic Fx. SOPHIA overnight, improving, plan for discharge to short term rehab early next week. Patient Complains of: Gastrointestinal: No Nausea, No Vomiting Musculoskeletal: Pain (well controlled) Physical Exam Vital Signs Date Time Temp Pulse Resp B/P (MAP) Pulse Ox O2 Delivery O2 Flow Rate FiO2 03/20/18 10:11 93 Nasal Cannula 3.0 03/20/18 08:39 80 16 112/82 (92) 03/20/18 03:26 98.3 Intake and Output 03/20/18 06:58 Intake Total 952 ml Output Total 125 ml Balance 827 ml Intake Oral 752 ml IV Total 200 ml Output Urine Total 125 ml # Voids 3 General Appearance: Alert, Awake, No Acute Distress Neuro: No Gross deficits Eyes: PERRLA ENT: Normal Neck: No Masses Cardiovascular: Normal Rhythm & Peripheral Pulses Respiratory: No Respiratory Distress (2-3L O2) GI: Soft and Non-Tender Extremities: Soft and Non Tender, Warm, Pulses, Perfused; No Edema Integumentary: Skin Intact without Lesion / Mass Psych: Alert & Oriented X3 Result Diagram: 03/20/1862003/17/181937 Assessment and Plan Problems: (1) Status post hip replacement Status: Acute Assessment & Plan: She had a right ROBERT on 03/08 (9 days prior to admission). A couple of days prior to admission she had a misstep and immediately had pain. Radiographs revealed a periprosthetic subtrochanteric/intertrochanteric fracture of the femur with movement of the stem. She had repair of the fracture 03.18. She is on ASA for DVT/PE prophylaxis. (2) HTN (hypertension) Status: Chronic Assessment & Plan: Continue chronic amlodipine and furosemide with parameters. (3) OAB (overactive bladder) Status: Chronic Assessment & Plan: Continue chronic oxybutynin. (4) Hyperlipemia Status: Chronic Assessment & Plan: Continue chronic lovastatin. Exam Sepsis Risk: No Definite Risk Problem Qualifiers (1) Status post hip replacement: Laterality: right Qualified Codes: Z96.641 - Presence of right artificial hip joint VJ IQBAL DO Mar 20, 2018 10:47
[2018-03-20 13:43] VITALS: BP 96/60
[2018-03-20 14:03] VITALS: BP 134/71
[2018-03-20 19:08] VITALS: BP 107/84
[2018-03-20] MEDS: LOVASTATIN 20 MG TAB PO SCH (20:42)
[2018-03-20] MEDS: amLODIPine BESYL(*) 5 MG TAB PO SCH (20:43)
[2018-03-20 23:13] VITALS: BP 125/66
[2018-03-20] MEDS: CALCIUM CARBONATE 500 MG CHEW PO PRN (23:17)
[2018-03-21 03:47] VITALS: BP 138/64
[2018-03-21 06:01] LABS: PLATELET COUNT, AUTOMATED 326 K/uL (150-450)
[2018-03-21 08:09] VITALS: BP 133/58
[2018-03-21] MEDS: FUROSEMIDE 20 MG TAB PO SCH (08:11)
[2018-03-21] MEDS: OXYBUTYNIN CHL 5 MG TAB PO SCH (08:36)
[2018-03-21] MEDS: DOCUSATE SODIUM 100 MG CAP PO SCH (08:36)
[2018-03-21] MEDS: POLYETHYLENE GLYCOL 17 GM PKT PO SCH (08:37)
[2018-03-21] MEDS: CELECOXIB 200 MG CAP PO SCH (08:39)
[2018-03-21] MEDS ORDERED: RANITIDINE HCL 150 MG TAB PO PRN (09:00)
[2018-03-21] MEDS ORDERED: ASPIRIN 325 MG ENTERIC COATED PO SCH (09:00)
[2018-03-21] MEDS: CALCIUM CARBONATE 500 MG CHEW PO PRN (10:05)
[2018-03-21] MEDS ORDERED: APAP/HYDROCODONE 325/7.5 TAB PO PRN (10:25)
[2018-03-21] MEDS ORDERED: DIAZEPAM 5 MG TAB PO PRN (10:25)
--- NOTE | 2018-03-21 10:51 | Hospitalist Progress Note ---
Subjective Progress Notes Subjective She has some complaints of acid reflux this morning. She otherwise, is doing well. Patient Complains of: Cardiovascular: No: Chest Pain Respiratory: No: Shortness of Breath Physical Exam Vital Signs Date Time Temp Pulse Resp B/P (MAP) Pulse Ox O2 Delivery O2 Flow Rate FiO2 03/21/18 08:13 Nasal Cannula 2.0 03/21/18 08:09 99.1 74 20 133/58 (83) 92 Intake and Output 03/21/18 06:58 Intake Total 360 ml Balance 360 ml Intake Oral 360 ml # Voids 4 # Bowel Movements 3 # Emeses 1 General Appearance: Alert, Awake, No Acute Distress, Afebrile Neuro: No Gross deficits Cardiovascular: Regular Rate and Rhythm Respiratory: No Respiratory Distress, Clear to Auscultation GI: Soft and Non-Tender Psych: Alert & Oriented X3, Appropriate Mood & Affect Result Diagram: 03/21/1852403/21/18524 Assessment and Plan Problems: (1) Status post hip replacement Status: Acute Assessment & Plan: She had a right ROBERT on 03/08 (9 days prior to admission). A couple of days prior to admission she had a misstep and immediately had pain. Radiographs revealed a periprosthetic subtrochanteric/intertrochanteric fracture of the femur with movement of the stem. She had repair of the fracture 03.18. She is on ASA for DVT/PE prophylaxis. (2) HTN (hypertension) Status: Chronic Assessment & Plan: Continue chronic amlodipine and furosemide with parameters. (3) OAB (overactive bladder) Status: Chronic Assessment & Plan: Continue chronic oxybutynin. (4) Hyperlipemia Status: Chronic Assessment & Plan: Continue chronic lovastatin. (5) GERD (gastroesophageal reflux disease) Status: Chronic Assessment & Plan: She usually takes rolaids and OTC treatment. We will add Ranitidine for treatment of acid reflux. Exam Sepsis Risk: No Definite Risk Problem Qualifiers (1) Status post hip replacement: Laterality: right Qualified Codes: Z96.641 - Presence of right artificial hip joint [facility] Mar 21, 2018 10:51
--- NOTE | 2018-03-21 11:21 | RADIOLOGY IMAGING REPORT ---
FACILITY: [facility] [place] PATIENT NAME: Lainey Thayer : 1940 MR: [id number] V: [id number] EXAM DATE: ORDERING PHYSICIAN: HARMEET RAHMAN TECHNOLOGIST: Location: [facility] [place] Patient: Lainey Thayer : 1940 Visit/Account:[id number] Date of Sevice: 03/21/2018 DEXA Scan Clinical history: History of hip fracture. Comparison: None available. LUMBAR SPINE: The bone mineral density (BMD) measured from L1-L4 correlates with a Z-score 2.2 and a T-score of one which is Normal as defined by the World Health Organization. The corresponding risk of fracture in the lumbar spine is Not increased compared with a young adult reference population. HIP: Bone mineral density (BMD) measured in the Left total hip region correlates with a Z-score -0.1 and a T-score of -1.5 which is osteopenia as defined by the World Health Organization. The corresponding risk of fracture in the hip is 3 times increased compared with a young adult reference population. T score left femoral neck 1.2 Bone mineral density (BMD) measured in the Femoral Neck region measures 1.202 g/cm2. Impression: 1. Lumbar spine: Normal. 2. Left Hip: Osteopenia. 3. Femoral Neck: Bone Mineral Density is 1.202 g/cm2 The next DEXA scan of this patient should include the following sites: L1-L4 and the left hip. FRAX? WHO Fracture Risk Assessment Tool link: <http://www.shef.ac.uk/FRAX/tool.jsp?locationValue=9> PLEASE NOTE: 1) The World Health Organization defines low BMD as follows: T-score Normal > -1 Osteopenia < -1 and > -2.5 Osteoporosis < -2.5 without fractures Established osteoporosis < -2.5 with fractures 2) In general, you may wish to consider: Diagnosis Treatment Follow-up DEXA Normal BMD Prevention 2-3 years Osteopenia Prevention/therapy 1-2 years Osteoporosis Therapy Yearly 3) Fracture risk estimated from the T-score is more accurate for vertebral fractures (often spontane ous) than for hip fractures. Report Dictated By: Breann Bravo MD at 03/21/2018 11:14 AM Report E-Signed By: Breann Bravo MD at 03/21/2018 11:15 AM WSN:[email or web address]
[2018-03-21] MEDS ORDERED: CELECOXIB 200 MG CAP PO SCH (17:00)
[2018-03-21] MEDS ORDERED: OXYBUTYNIN CHL 5 MG TAB PO SCH (21:00)
[2018-03-21] MEDS ORDERED: DOCUSATE SODIUM 100 MG CAP PO SCH (21:00)
[2018-03-21] MEDS ORDERED: LOVASTATIN 20 MG TAB PO SCH (21:00)
[2018-03-22] MEDS ORDERED: FUROSEMIDE 20 MG TAB PO SCH (09:00)
[2018-03-22] MEDS ORDERED: POLYETHYLENE GLYCOL 17 GM PKT PO SCH (09:00)
== END 2018-03-21 10:25 | DRG 468 ==
LOC: MED 16:19 → EDSTATUS 03-18 14:15 → MED 03-21 09:44
PROVIDERS: ADMIT Orthopaedic Surgery; ATTEND Orthopaedic Surgery
PROC: 0SRR03A Replacement of Right Hip Joint, Femoral Surface with Ceramic Synthetic Substitute, Uncemented, Open Approach (ICD-10-PCS; principal; 2018-03-17)
PROC: 0SPR0JZ Removal of Synthetic Substitute from Right Hip Joint, Femoral Surface, Open Approach (ICD-10-PCS; 2018-03-17)
PROC: 0QS604Z Reposition Right Upper Femur with Internal Fixation Device, Open Approach (ICD-10-PCS; 2018-03-17)
DX: M97.01XA Periprosthetic fracture around internal prosthetic right hip joint, initial encounter (principal); I10 Essential (primary) hypertension; N32.81 Overactive bladder; E78.5 Hyperlipidemia, unspecified; K21.9 Gastro-esophageal reflux disease without esophagitis; X50.1XXA Overexertion from prolonged static or awkward postures, initial encounter; Y92.009 Unspecified place in unspecified non-institutional (private) residence as the place of occurrence of the external cause; Y99.8 Other external cause status
CPT/HCPCS: 36415; 72170; 77080; 81001; 82040; 82247; 82310; 82374; 82435; 82565; 82947; 84075; 84132; 84155; 84295; 84450; 84460; 84520; 85025; 86850; 86900; 86901; 87070; 87073; 87205; 97162; C1776; J0690; J1100; J2001; J2250; J2270; J2405; J2550; J2704; J3010; J3490; J7050; J7060; J7120

== ENCOUNTER 2018-03-21 10:25 | Inpatient (IN) | payer MEDICARE, OTHER ==
[2018-03-18 08:45] VITALS: Ht 162.6 cm; Wt 85.8 kg
[~2018-03-21] VITALS: Ht 162.6 cm; Wt 85.8 kg
[2018-03-21] MEDS ORDERED: APAP/HYDROCODONE 325/7.5 TAB PO PRN (11:06)
[2018-03-21] MEDS ORDERED: CELECOXIB 200 MG CAP PO SCH (11:06)
[2018-03-21] MEDS ORDERED: diphenhydrAMINE 25 MG CAP PO PRN ×2 (11:11→11:25)
[2018-03-21] MEDS ORDERED: BISACODYL 10 MG SUPP PR PRN (11:13)
[2018-03-21] MEDS ORDERED: MAGNESIUM HYDROXIDE* 30ML UDCP PO PRN (11:14)
[2018-03-21] MEDS ORDERED: ACETAMINOPHEN 325 MG TAB PO PRN (11:15)
[2018-03-21] MEDS ORDERED: DIAZEPAM 5 MG TAB PO PRN (11:16)
[2018-03-21] MEDS ORDERED: RANITIDINE HCL 150 MG TAB PO PRN (11:20)
[2018-03-21] MEDS ORDERED: CETIRIZINE HCL 10 MG TAB PO PRN (11:20)
[2018-03-21 11:30] VITALS: BP 148/77
--- NOTE | 2018-03-21 11:39 | Consultant Pharmacy Review ---
Pinion Sorter Review Medication Review Do All Mecications have a Diag: Yes Beers Criteria Medication 2015 Anticholinergics exclude TCAs: Promethazine (6.25 MG prn) Benzodiazapines (long acting): Diazepam (5 mg q6 hours prn spasms) Other General Cautions Lexicomp Interaction Analysis A = No known interaction C = Monitor therapy X = Avoid combination B = No action needed D = Consider therapy modification Drugs in this analysis: Acetaminophen; Aspirin; Bisacodyl; Calcium Carbonate; CeleBREX; Cetirizine (Systemic); DiazePAM; DiphenhydrAMINE (Systemic); Docusate Sodium (SYN); Lasix; Lortab; Lovastatin; Magnesium Hydroxide; MiraLax [OTC]; Norvasc; Oxybutynin; Promethazine; RaNITIdine * Drug-Drug Interactions * D Aspirin CeleBREX (Nonsteroidal Anti-Inflammatory Agents (CHARLES-2 Selective)) Depends on Dose D Bisacodyl Calcium Carbonate (Antacids) D Bisacodyl Magnesium Hydroxide (Antacids) D CeleBREX (Nonsteroidal Anti-Inflammatory Agents) Lasix (Loop Diuretics) D Cetirizine (Systemic) (SALES UTILITY REPRESENTATIVE Depressants) Lortab (HYDROcodone) D DiazePAM (SALES UTILITY REPRESENTATIVE Depressants) Lortab (HYDROcodone) D DiphenhydrAMINE (Systemic) (SALES UTILITY REPRESENTATIVE Depressants) Lortab (HYDROcodone) D Lortab (HYDROcodone) Promethazine (SALES UTILITY REPRESENTATIVE Depressants) C Aspirin (Salicylates) Lasix (Loop Diuretics) C Calcium Carbonate (Calcium Salts) Norvasc (Calcium Channel Blockers) C Cetirizine (Systemic) (Anticholinergic Agents) DiphenhydrAMINE (Systemic) (Anticholinergic Agents) C Cetirizine (Systemic) (Anticholinergic Agents) Oxybutynin (Anticholinergic Agents) C Cetirizine (Systemic) (Anticholinergic Agents) Promethazine (Anticholinergic Agents) C Cetirizine (Systemic) (SALES UTILITY REPRESENTATIVE Depressants) DiazePAM (SALES UTILITY REPRESENTATIVE Depressants) C Cetirizine (Systemic) (SALES UTILITY REPRESENTATIVE Depressants) DiphenhydrAMINE (Systemic) (SALES UTILITY REPRESENTATIVE Depressants) C Cetirizine (Systemic) (SALES UTILITY REPRESENTATIVE Depressants) Promethazine (SALES UTILITY REPRESENTATIVE Depressants) C DiazePAM (SALES UTILITY REPRESENTATIVE Depressants) DiphenhydrAMINE (Systemic) (SALES UTILITY REPRESENTATIVE Depressants) Pneumococcal Vaccine HX Pneumo Vac ([id number]): Yes KOREY GODWIN Mar 21, 2018 11:38
--- NOTE | 2018-03-21 12:29 | OT ECF NOTE ---
Type of Note: Initial Note Primary Medical Diagnosis: Generalized weakness s/p revision of ROBERT femoral component, ORIF of femur fx. Date of initial ROBERT: 03/08/18. Date of revision: 03/18/18. Precautions: WBAT, Posterior hip precautions, avoid strengthening for 6-8 weeks Occupational Therapy Evaluation Date: 03/21/18 SUBJECTIVE: Prior Hospitalization: [facility]: Initial ROBERT: 03-08-18 thru 03/10/18. Revision 03/17/18 thru 03/21/18 Prior Level of Function: Prior to admission for revision, pt reports ADLs/IADLs were going well. She was (I) with ADLs and occasional assist from sons for IADLs. Pt typically makes frozen meals and was ambulating with a RW. Pt is able to recall 3/3 posterior hip precautions. Prior Living Status: Single level house Alone Assist by family Community Services: Support adequate Home health [facility] Accessibility: Ramp All needs on one level Walk-in shower Equipment Owned: Front wheeled walker with walker tray Toilet riser Tub/shower chair Multiple reachers Slip on shoes-pt does like to wear socks Medical Complications/Past Medical History: HTN, overactive bladder, hyperlipemia Psychosocial Support: Sons who also reside in [place] Pain Scale (0-10): No pain reported supine in bed OBJECTIVE: Strength: MMT: Right Left Shoulder Flexion WFL WFL Elbow Flexion WFL WFL Wrist Extension WFL WFL Deck Mate WFL WFL (5= normal, 4= good, 3= fair, 2= poor, 1= trace) ROM: Both upper extremities, WFL Functional Transfer: Assistive Device: Front wheeled walker Transfer Ability: CGA-per report from medical floor. Pt adamantly refusing to get out of bed due to nausea/acid reflux. Declined further needs/concerns. ADL: Upper body dressing: Assistive device: Upper body dressing ability: Lower body dressing: Assistive device: Lower body dressing ability: Toileting: Assistive device: Toileting ability: Grooming/hygiene: Assistive device: Grooming ability: Bathing: Assistive device: Bathing ability: Standardized Assessment: Garrett Index of Activities of Daily Livin/20 upon initial evaluation. Scoring based on clinical judgement from report. Will reassess as pt engages in ADLs. ASSESSMENT: Mitali presents to ECF requiring increased assist for ADLs/IADLs s/p ROBERT revision. She will benefit from skilled OT services to improve strength and confidence for (I) with ADLs/IADLs prior to discharge home alone. Problem List/Current Limitations: Pain Decreased activity tolerance Decreased ROM Generalized weakness Short Term Goals: 1) Pt will be Mod (I) UB/LB dressing. 2) Pt will be Independent grooming/hygiene. 3) Pt will be Mod (I) toilet task. 4) Pt will be Mod (I) shower task. 5) Pt Garrett Index of ADLs score will improve by 2 points. 6) Pt will be Mod (I) light meal prep task. Prison Goals: Return home and resume previous services Patient Goals: Improved bed mobility and functional mobility prior to return home Rehabilitation Prognosis: Good Barriers to Discharge: None identified at this time PLAN: The patient will benefit from skilled occupational therapy services 5 times per week for 2 weeks including: Ther ex ADL training Safety training Ther act IADL training Transfer training Adaptive equip training Bed mobility Energy conservation Thank you for this referral. If you have any questions, concerns, or comments about this report or plan, please contact me at . Leigh Ann Contreras MS, OTR/L Occupational Therapist [facility]ORAIDA
[2018-03-21] MEDS: PROMETHAZINE HCL 25 MG TAB PO PRN ×2 (13:59→21:39)
--- NOTE | 2018-03-21 14:53 | PT ECF NOTE ---
Type of Note: Initial Note Primary Medical Diagnosis: Pt is s/p ROBERT on 03/08/18 with revision 03/18/18 due periprosthetic subtrochanteric/intertrochanteric fx with movement of the stem. Pt is WBAT with posterior hip precautions. Physical Therapy Evaluation Date: 03/21/18 SUBJECTIVE: Prior Hospitalization: [facility] for ROBERT 03/08/18 Prior Level of Function: Pt utilized a RW for ambulation house-hold distances and "did not get out much" but was still driving. Prior Living Status: Single level house, Alone, Assist by family who also live in [facility] Services: Support adequate, Home health care/home PT visits Home Accessibility: Ramp, All needs on one level, Walk-in shower Equipment Owned: Front wheeled walker, Toilet riser, Tub/shower chair Medical Complications/Past Medical History: see [employer], also Pt vomiting blood upon eval, thus, mobility deferred. Psychosocial Support: Supportive children Pain Scale (0-10): none reported at time of eval. OBJECTIVE: Pt vomiting blood upon eval, thus, mobility deferred. With review of records from [facility] Med/Surg, Pt is able to get in/out of bed with assistance, stand, and ambulate >100' with RW. ASSESSMENT: Pt presents with decreased independence with functional mobility compared to prior level of function. Pt will benefit from skilled PT for strengthening, functional mobility training, and balance training (Pt self- identified poor balance as an area she would like to address, specifically having her heel touch the ground during ambulation to increase stability) in order to return safely to living alone. Problem List/Current Limitations: Pain, Decreased activity tolerance, Decreased strength, Decreased ROM, Decreased balance, Generalized weakness, Nausea Short Term Goals: 1. Mod I bed mobility. 2. Mod I transfers from a variety of surfaces. 3. Mod I gait x 150' with RW. 4. Demonstrate a heel-strike with both feet during ambulation without verbal cueing in order to improve balance. 5. Independent with hip precautions. 6. Mod I ascend/descend 1 step to simulate curb. Shelter Goals: Return home. Patient Goals: Return home. Rehabilitation Prognosis: Good Barriers for Discharge: None identified at this time. PLAN: The patient will benefit from skilled physical therapy services 5 times per week for 2 weeks including: Therapeutic Exercise, Therapeutic Activities, Transfer Training, Gait Training, Stair Training, Manual Therapy, ADL's, Safety Training, Neuromuscular Re-educ., Pt/Caregiver Training, Bed Mobility Thank you for this referral. If you have any questions, concerns, or comments about this report or plan, please contact me at . Sadaf Mayes, PT, DPT, GCS MTDD
[2018-03-21] MEDS: ONDANSETRON 4 MG ODT TABDP SL PRN (16:40)
[2018-03-21 21:30] VITALS: BP 154/76
[2018-03-21] MEDS: LOVASTATIN 20 MG TAB PO SCH (21:38)
[2018-03-21] MEDS: amLODIPine BESYL(*) 5 MG TAB PO SCH (21:38)
[2018-03-21] MEDS: OXYBUTYNIN CHL 5 MG TAB PO SCH (21:38)
[2018-03-21] MEDS: DOCUSATE SODIUM 100 MG CAP PO SCH (21:38)
[2018-03-22 07:40] VITALS: BP 157/64
[2018-03-22 08:18] LABS: PLATELET COUNT, AUTOMATED 400 K/uL (150-450)
[2018-03-22] MEDS ORDERED: ASPIRIN 325 MG ENTERIC COATED PO SCH (09:00)
--- NOTE | 2018-03-22 09:23 | RADIOLOGY IMAGING REPORT ---
FACILITY: [facility] - [place] PATIENT NAME: Lainey Thayre : 1940 MR: [id number] V: [id number] EXAM DATE: ORDERING PHYSICIAN: YAHIR ADAMS TECHNOLOGIST: [place] [facility] [place] Lainey Thayer : 1940 Visit/Account:[id number] Date of Sevice: 03/22/2018 KUB SINGLE VIEW ABDOMEN HISTORY: NAUSEA AND VOMITING COMPARISON: X-ray examination including the pelvis March 18, 2018 FINDINGS: There is a nonspecific bowel pattern with air noted in small and large intestine. There is a dilated loop of bowel noted overlying the central aspect of the abdomen and left hemiabdo men. Its unclear whether this represents redundant sigmoid colon and/or overlying gastric air. Likely the midline gas is due to the sigmoid colon and there is adjacent gaseous distention of the stomach. Less likely this could represent dilated/flipped cecum (cecal bascule) No evidence of high-grade obs truction, pneumatosis or free air. IMPRESSION: Nonspecific bowel pattern. There is gaseous distention in the midline and left hemiabdomen which is l ikely superimposed stomach and redundant sigmoid. This may be secondary to gastritis or partial obstr uction. If further evaluation is needed, CT examination with contrast is recommended. Report Dictated By: Sebas Espinoza MD at 03/22/2018 9:11 AM Report E-Signed By: Sebas Espinoza MD at 03/22/2018 9:19 AM WSN:[id number]
[2018-03-22] MEDS: OXYBUTYNIN CHL 5 MG TAB PO SCH ×2 (09:31→20:34)
[2018-03-22] MEDS: DOCUSATE SODIUM 100 MG CAP PO SCH ×2 (09:31→20:34)
[2018-03-22] MEDS: POLYETHYLENE GLYCOL 17 GM PKT PO SCH (09:32)
[2018-03-22] MEDS: FUROSEMIDE 20 MG TAB PO SCH (09:32)
--- NOTE | 2018-03-22 10:46 | Hospitalist Progress Note ---
Subjective Progress Notes Subjective She has had persistent n/v since admission yesterday. However, now she reports that she is keeping liquids down and is feeling better. No reports of abdominal pain and is passing BM. Physical Exam Vital Signs Date Time Temp Pulse Resp B/P (MAP) Pulse Ox O2 Delivery O2 Flow Rate FiO2 03/22/18 09:41 95 Nasal Cannula 2.0 03/22/18 07:40 98.7 72 18 157/64 (95) Intake and Output 03/22/18 06:58 Output Total 200 ml Balance -200 ml Output Emesis 200 ml # Voids 5 # Bowel Movements 1 # Emeses 1 General Appearance: Alert, Awake, No Acute Distress GI: Other (Soft, non--distended, mild LLQ pain with palpation.) Result Diagram: 03/22/18 0810 03/22/18 0810 Imaging KUB - Nonspecific bowel pattern. There is gaseous distention in the midline and left hemiabdomen which is likely superimposed stomach and redundant sigmoid. This may be secondary to gastritis or partial obstruction. If further evaluation is needed, CT examination with contrast is recommended. Assessment and Plan Problems: (1) Nausea & vomiting Status: Acute Assessment & Plan: KUB showed a nonspecific bowel pattern, but gastritis or partial obstruction was possible. Improving symptomatically and has a benign abdominal exam. WBC elevated. Will follow symptoms and treat as needed. R epeat CBC and BMP tomorrow. (2) Status post hip replacement Status: Acute Assessment & Plan: She had a right ROBERT on 03/08 (9 days prior to admission). A couple of days prior to admission she had a misstep and immediately had pain. Ra diographs revealed a periprosthetic subtrochanteric/intertrochanteric fracture of the femur with movement of the stem. She had repair of the fracture 03/18. She is on ASA for DVT/PE prophylaxis. (3) GERD (gastroesophageal reflux disease) Status: Chronic Assessment & Plan: She usually takes Rolaids and OTC treatment. Added Ranitidin e for treatment of acid reflux. (4) HTN (hypertension) Status: Chronic Assessment & Plan: Continue chronic amlodipine and furosemide with parameters. (5) OAB (overactive bladder) Status: Chronic Assessment & Plan: Continue chronic oxybutynin. (6) Hyperlipemia Status: Chronic Assessment & Plan: Continue chronic lovastatin. YAHIR ADAMS MD Mar 22, 2018 10:46
[2018-03-22] MEDS: RANITIDINE HCL 150 MG TAB PO SCH ×2 (10:55→20:34)
--- NOTE | 2018-03-22 14:50 | Medical Nutrition Therapy ---
Nutrition Anthropometrics Height (Inches): 64.00 Height (Calculated Centimeters: 162.785445 Weight (Pounds): 188 Weight (Calculated Kilograms): 85.275 Sukumar Nutrition Score: Adequate Sukumar Nutrition Risk Score: 20 Dietary Referral Nutrition Risk Factors: Diff. Swallowing Nutrition Risk Comment: says chokes occasionally (once a month) Physical Findings Physical Appearance: Overweight BMI 25-29 Skin Appearance Skin Appearance: Edema Edema Location Modifier: Right Edema Location: Leg Type of Edema: Degree of Edema: Gastrointestinal Symptoms GI Symtoms: Nausea, Vomiting, Change in Bowel Pattern Tube Present: Bowel Sounds: Recent Bowel Pattern: Stool Characteristics: Nutritional Diagnosis Nutritional Risk Acuity 2: Swallowing Problem (occasional choking ~ 1X/month) Nutritional Risk Acuity 3: Fair Appetite Past Medical History: Hx of sleep apnea, 2 PPD 25 Yr Hx, Arthritis, COPD, HTN, Hypercholesterolemia. Nutrition Diagnosis: Swallowing Difficulties Nutrition Etiology: Physiological Causes Nutrition Problem/Etiology/Sym: AEB pt reporting choking ~ 1X/month Energy Requirement: 1705 ([place]) Protein Requirement: 85 (1gm/kg) Fluid Requirement: 2125 (25ml/kg) Diet Type: Diet as Tolerated MICHELLE/REG Nutrition Intervention: Cont diet as ordered, Encourage intake, HS snack Nutrition Monitoring & Eval Nutrition Goals: Eat 75-100% Meal RD Patient Assessment Time: [address] Assessment Type: RD Assessment Patient Nutrition Acuity: 2-Moderate Follow Up Date: Mar 29, 2018 Nutritional Comment: 12/ Pt admitted post hip replacement. Pt on MICHELLE. Pt was eating 100% of meals in med floor. Today reporting nausea and has not been eating. Pt reports occasional choking. Pt may benefit from SPL eval. Alb 3.1. BMI in stage 1 obesity range. Will cont to monitor and encourage intake. PAT GIRALDO Mar 22, 2018 14:50
[2018-03-22 19:13] VITALS: BP 146/70
[2018-03-22] MEDS: amLODIPine BESYL(*) 5 MG TAB PO SCH (20:34)
[2018-03-22] MEDS: LOVASTATIN 20 MG TAB PO SCH (20:34)
[2018-03-23 06:02] LABS: PLATELET COUNT, AUTOMATED 365 K/uL (150-450)
[2018-03-23 07:35] VITALS: BP 139/72
[2018-03-23] MEDS: FUROSEMIDE 20 MG TAB PO SCH (07:39)
[2018-03-23] MEDS: RANITIDINE HCL 150 MG TAB PO SCH ×2 (08:34→20:28)
[2018-03-23] MEDS: POLYETHYLENE GLYCOL 17 GM PKT PO SCH (08:34)
[2018-03-23] MEDS: OXYBUTYNIN CHL 5 MG TAB PO SCH ×2 (08:34→20:28)
[2018-03-23] MEDS: DOCUSATE SODIUM 100 MG CAP PO SCH ×2 (08:34→20:28)
[2018-03-23] MEDS ORDERED: ALBUTEROL/IPRATROPIUM 3 ML NEB NEB PRN (08:40)
--- NOTE | 2018-03-23 08:56 | Hospitalist Progress Note ---
Subjective Progress Notes Subjective The patient states she is feeling much better. She has had no further nausea or vomiting. she is now able to eat and drink. ASA and Celebrex were stopped due to coffee ground emesis and she is now moving better and wears SCDs at rest. Physical Exam Vital Signs Date Time Temp Pulse Resp B/P (MAP) Pulse Ox O2 Delivery O2 Flow Rate FiO2 03/23/18 07:36 Nasal Cannula 2.0 03/23/18 07:35 97.5 79 20 139/72 (94) 91 Intake and Output 03/23/18 06:58 Intake Total 440 ml Balance 440 ml Intake Oral 440 ml # Voids 8 # Bowel Movements 0 # Emeses 1 General Appearance: Alert, Awake, No Acute Distress, Afebrile Neuro: No Gross deficits Eyes: PERRLA Cardiovascular: Regular Rate and Rhythm Respiratory: Other (Few scattered expiratory wheezes bilaterally.) GI: Soft and Non-Tender Extremities: Warm, Perfused, Other (No edema.) Psych: Appropriate Mood & Affect Result Diagram: 03/23/18 0506 03/23/18 0506 Assessment and Plan Problems: (1) Gastritis Status: Acute Assessment & Plan: Improved. No further nausea and vomiting with ranitidine added and ASA and Celebrex stopped. SCDs in place. (2) Nausea & vomiting Status: Acute Assessment & Plan: Improved with treatment as above. (3) Status post hip replacement Status: Acute Assessment & Plan: She had a right ROBERT on 03/08 (9 days prior to admission). A couple of days prior to admission she had a misstep and immediately had pain. Radiographs revealed a periprosthetic subtrochanteric/intertrochanteric fracture of the femur with movement of the stem. She had repair of the fracture 03/18. She is on ASA for DVT/PE prophylaxis. (4) GERD (gastroesophageal reflux disease) Status: Chronic Assessment & Plan: She usually takes Rolaids and OTC treatment. Added Ranitidine for treatment of acid reflux and possible gastritis. (5) HTN (hypertension) Status: Chronic Assessment & Plan: Continue chronic amlodipine and furosemide with parameters. (6) OAB (overactive bladder) Status: Chronic Assessment & Plan: Continue chronic oxybutynin. (7) Hyperlipemia Status: Chronic Assessment & Plan: Continue chronic lovastatin. (8) COPD (chronic obstructive pulmonary disease) Status: Chronic Assessment & Plan: The patient smoked for 30 years and states she has "a little COPD". She has had low O2 readings at times in the past. Today she has some wheezing. Will add prn Duonebs and continue O2 as needed. (9) CINDY (obstructive sleep apnea) Status: Chronic Assessment & Plan: The patient has her own CPAP machine which will be set up this evening. Time Spent on Plan of Care: < 30 min KOREY BOWMAN MD Mar 23, 2018 08:56
[2018-03-23] MEDS ORDERED: ACTI260C (11:21)
[2018-03-23] MEDS ORDERED: CHOL200021 PO (11:21)
[2018-03-23] MEDS ORDERED: [UNRECOGNIZED DRUG - CODE] (11:21)
[2018-03-23] MEDS ORDERED: OMEG-11 PO (11:21)
[2018-03-23] MEDS ORDERED: MELO-207 PO (14:09)
[2018-03-23] MEDS ORDERED: AMLO-111 PO (14:09)
[2018-03-23] MEDS ORDERED: ASPI-757 PO (14:09)
[2018-03-23] MEDS ORDERED: LOVA40TA89 PO (14:09)
[2018-03-23] MEDS ORDERED: CRAN400C2 PO (14:09)
[2018-03-23] MEDS ORDERED: FURO-45 PO (14:09)
[2018-03-23] MEDS ORDERED: SODI1TAB2 PO (14:09)
[2018-03-23 18:28] VITALS: BP 144/74
[2018-03-23] MEDS: LOVASTATIN 20 MG TAB PO SCH (20:28)
[2018-03-23] MEDS: amLODIPine BESYL(*) 5 MG TAB PO SCH (20:28)
[2018-03-24 08:00] VITALS: BP 145/66
[2018-03-24] MEDS: DOCUSATE SODIUM 100 MG CAP PO SCH ×2 (09:10→20:38)
[2018-03-24] MEDS: POLYETHYLENE GLYCOL 17 GM PKT PO SCH (09:10)
[2018-03-24] MEDS: OXYBUTYNIN CHL 5 MG TAB PO SCH ×2 (09:10→20:38)
[2018-03-24] MEDS: RANITIDINE HCL 150 MG TAB PO SCH ×2 (09:10→20:38)
[2018-03-24] MEDS: FUROSEMIDE 20 MG TAB PO SCH (09:10)
[2018-03-24 15:45] VITALS: BP 152/70
[2018-03-24] MEDS: amLODIPine BESYL(*) 5 MG TAB PO SCH (20:38)
[2018-03-24] MEDS: LOVASTATIN 20 MG TAB PO SCH (20:38)
[2018-03-25 07:30] VITALS: BP 132/59
[2018-03-25] MEDS: POLYETHYLENE GLYCOL 17 GM PKT PO SCH (08:42)
[2018-03-25] MEDS: DOCUSATE SODIUM 100 MG CAP PO SCH ×2 (08:43→20:28)
[2018-03-25] MEDS: RANITIDINE HCL 150 MG TAB PO SCH ×2 (08:43→20:32)
[2018-03-25] MEDS: OXYBUTYNIN CHL 5 MG TAB PO SCH ×2 (08:43→20:32)
[2018-03-25] MEDS: FUROSEMIDE 20 MG TAB PO SCH (09:00)
--- NOTE | 2018-03-25 09:44 | ECF H&P BLANK ---
COUNT INCLUDES THE [facility] H&P UPDATE DATE OF ADMISSION: March 17, 2018 IDENTIFICATION/CHIEF COMPLAINT Lainey is a 77-year-old woman with the chief complaint of right hip pain. HISTORY OF PRESENT ILLNESS Patient is nine days out from total hip arthroplasty. She was doing extremely well, discharged on , until the Wednesday following when she was in her doorway reaching for a snow shovel. She twisted and backed up and had immediate pain in the right hip region with some difficulty bearing weight. Subsequently, she was evaluated at the clinic, and radiographs revealed a periprosthetic subtrochanteric/intertrochanteric fracture of the femur with movement of the stem. Admission is indicated in preparation for revision surgery and repair of the fracture. PAST MEDICAL HISTORY, PAST SURGICAL HISTORY, FAMILY HISTORY, SOCIAL HISTORY, AND REVIEW OF SYSTEMS Entirely unchanged from the recent H and P dictated immediately prior to her operation nine days ago. MEDICATIONS The only new medications have been: 1. Hydrocodone as needed for pain. 2. Aspirin 325 mg p.o. q. day. PHYSICAL EXAMINATION GENERAL: This is a healthy female. HEENT: She is normocephalic, atraumatic. NECK: Supple. LUNGS: Clear. HEART: Regular. ABDOMEN: Soft. ORTHOPEDIC: The right hip incision has healed nicely with no signs of infection. Some swelling and bruising. Staple line remains intact. She is tender and is unable to straight leg raise. She has pain with attempted range of motion of the hip. Calves are nontender. Neurovascular function intact. IMAGING Radiographs reveals a minimally displaced fracture at about mid stem level through the subtrochanteric region best visualized at the medial cortex. The stem has subsided from its initial position. Acetabular fixation and placement are unchanged from immediate postop. ASSESSMENT Right hip periprosthetic proximal femur fracture, status post total hip arthroplasty. PLAN Will plan to revise the femoral stem to a distally fixed stem, modular reconstruction implant with concomitant cable repair and possible allograft strut grafting for the fracture. Rationale, risks, benefits, and alternatives were discussed at length with patient and family, and they strongly agree and would like to proceed. A signed permit is placed in the chart. No guarantees given or implied. <Electronically signed by ALESIA SÁNCHEZ MD> D/ [id number] KASHMIR/AUTUMN CC: ALESIA SÁNCHEZ MD The above acute care issues are resolving and/or stable. Patient requires skill ed nursing and/or skilled rehabilitation and is ready for admission to Extended Care. Any change in condition is described below. JASON CAGE DO Mar 25, 2018 09:44
[2018-03-25 15:58] VITALS: BP 134/77
[2018-03-25 20:32] VITALS: BP 139/76
[2018-03-25] MEDS: LOVASTATIN 20 MG TAB PO SCH (20:32)
[2018-03-25] MEDS: amLODIPine BESYL(*) 5 MG TAB PO SCH (20:32)
[2018-03-26 08:00] VITALS: BP 121/64
[2018-03-26] MEDS: DOCUSATE SODIUM 100 MG CAP PO SCH ×2 (09:00→20:37)
[2018-03-26] MEDS: FUROSEMIDE 20 MG TAB PO SCH (09:00)
[2018-03-26] MEDS: POLYETHYLENE GLYCOL 17 GM PKT PO SCH (09:00)
[2018-03-26] MEDS: OXYBUTYNIN CHL 5 MG TAB PO SCH ×2 (09:08→20:38)
[2018-03-26] MEDS: RANITIDINE HCL 150 MG TAB PO SCH ×2 (09:08→20:38)
[2018-03-26] MEDS: CALCIUM CARBONATE 500 MG CHEW PO PRN ×2 (09:13→17:30)
[2018-03-26 17:00] VITALS: BP 148/70
[2018-03-26 20:26] VITALS: BP 127/73
[2018-03-26] MEDS: amLODIPine BESYL(*) 5 MG TAB PO SCH (20:29)
[2018-03-26] MEDS: LOVASTATIN 20 MG TAB PO SCH (20:38)
[2018-03-27 08:20] VITALS: BP 117/66
[2018-03-27] MEDS: DOCUSATE SODIUM 100 MG CAP PO SCH ×2 (08:45→21:44)
[2018-03-27] MEDS: POLYETHYLENE GLYCOL 17 GM PKT PO SCH (08:46)
[2018-03-27] MEDS: RANITIDINE HCL 150 MG TAB PO SCH ×2 (08:47→21:44)
[2018-03-27] MEDS: FUROSEMIDE 20 MG TAB PO SCH (08:47)
[2018-03-27] MEDS: OXYBUTYNIN CHL 5 MG TAB PO SCH ×2 (08:47→21:44)
[2018-03-27] MEDS: [UNRECOGNIZED DRUG - OTHER] PO SCH ×2 (16:08→21:44)
[2018-03-27 16:20] VITALS: BP 114/73
[2018-03-27] MEDS: CALCIUM CARBONATE 500 MG CHEW PO PRN (17:00)
[2018-03-27 20:30] VITALS: BP 128/77
[2018-03-27] MEDS: LOVASTATIN 20 MG TAB PO SCH (21:44)
[2018-03-27] MEDS: amLODIPine BESYL(*) 5 MG TAB PO SCH (21:44)
[2018-03-28] MEDS: [UNRECOGNIZED DRUG - OTHER] PO SCH ×4 (06:30→20:55)
[2018-03-28 07:45] VITALS: BP 126/81
[2018-03-28 08:28] LABS: PLATELET COUNT, AUTOMATED 432 K/uL (150-450)
[2018-03-28] MEDS: POLYETHYLENE GLYCOL 17 GM PKT PO SCH (09:00)
[2018-03-28] MEDS: FUROSEMIDE 20 MG TAB PO SCH (09:00)
[2018-03-28] MEDS: RANITIDINE HCL 150 MG TAB PO SCH ×2 (09:04→20:56)
[2018-03-28] MEDS: OXYBUTYNIN CHL 5 MG TAB PO SCH ×2 (09:04→20:55)
[2018-03-28] MEDS: DOCUSATE SODIUM 100 MG CAP PO SCH ×2 (09:04→20:56)
--- NOTE | 2018-03-28 13:08 | RADIOLOGY IMAGING REPORT ---
FACILITY: [facility] PATIENT NAME: Lainey Thayer : 1940 MR: [id number] V: [id number] EXAM DATE: ORDERING PHYSICIAN: ALESIA SÁNCHEZ TECHNOLOGIST: Location: [facility] [place] Patient: Lainey Thayer : 1940 Visit/Account:[id number] Date of Sevice: 03/28/2018 VENOUS DOPP LOW RIGHT EXTREMIT HISTORY: Redness and swelling along right side of right leg COMPARISON STUDIES: none FINDINGS: Grayscale compression, duplex and color Doppler interrogation of the RIGHT lower extremity deep vein s from common femoral vein to proximal calf was performed. The greater saphenous vein was evaluated u sing similar technique. Common femoral vein negative Femoral vein negative Deep femoral vein - negative Popliteal vein negative Visualized deep calf veins negative Greater saphenous vein in the proximal thigh negative Popliteal fossa: negative Subcutaneous edema noted in the lower extremity. IMPRESSION: 1. Technically difficult examination due to edema and body habitus. No obvious DVT noted, however. Report Dictated By: Phong Cotto MD at 03/28/2018 1:02 PM Report E-Signed By: Phong Cotto MD at 03/28/2018 1:03 PM WSN:[email or web address]
--- NOTE | 2018-03-28 15:03 | Medical Nutrition Therapy ---
Nutrition Anthropometrics Height (Inches): 64.00 Height (Calculated Centimeters: 162.574806 Weight (Pounds): 188 Weight (Calculated Kilograms): 85.275 Sukumar Nutrition Score: Adequate Sukumar Nutrition Risk Score: 21 Dietary Referral Nutrition Risk Factors: Diff. Swallowing Nutrition Risk Comment: says chokes occasionally (once a month) Physical Findings Physical Appearance: Overweight BMI 25-29 Skin Appearance Skin Appearance: Edema Edema Location Modifier: Both Edema Location: Foot Type of Edema: Degree of Edema: Gastrointestinal Symptoms GI Symtoms: Nausea, Hemorrhoids, Change in Bowel Pattern Tube Present: Bowel Sounds: Recent Bowel Pattern: Stool Characteristics: Nutritional Diagnosis Nutritional Risk Acuity 2: Swallowing Problem (occasional choking ~ 1X/month) Nutritional Risk Acuity 3: Fair Appetite Past Medical History: Hx of sleep apnea, 2 PPD 25 Yr Hx, Arthritis, COPD, HTN, Hypercholesterolemia. Nutritional Acuity: 3-Mild Nutrition Diagnosis: Swallowing Difficulties Nutrition Etiology: Physiological Causes Nutrition Problem/Etiology/Sym: AEB pt reporting choking ~ 1X/month Energy Requirement: 1705 ([place]- St Jeor) Protein Requirement: 85 (1gm/kg) Fluid Requirement: 2125 (25ml/kg) Diet Type: Diet as Tolerated MICHELLE/REG Nutrition Intervention: Cont diet as ordered, Encourage intake, HS snack Additional Diet Restrictions: PUT PROTEIN POWDER IN APPROPRIATE FOODS Diet Comment To [facility]: OFFER NUTR SUPPLEMENT IF NO HIGH PROTEIN FOOD ORDERED Nutrition Monitoring & Eval Nutrition Goals: Eat 75-100% Meal Nutrition Follow-Up: Fair Intake RD Patient Assessment Time: [address] Assessment Type: RD Re-Assessment Patient Nutrition Acuity: 2-Moderate Follow Up Date: Mar 29, 2018 Nutritional Comment: 03/22 Pt admitted post hip replacement. Pt on MICHELLE. Pt was eating 100% of meals in med floor. Today reporting nausea and has not been eating. Pt reports occasional choking. Pt may benefit from SPL eval. Alb 3.1. BMI in stage 1 obesity range. Will cont to monitor and encourage intake. MEY 03/28 Pt eating 75-100% of small portions. Pt doesn't always order a high protein food with her meals. Pt had nausea which may have affected intake. Will put protein powder in appropriate foods and offer nutr supplment if no high protein food ordered. Will cont to monitor and encourage intake. PAT GIRALDO Mar 28, 2018 15:03
--- NOTE | 2018-03-28 15:08 | Medical Nutrition Therapy ---
Nutrition Monitoring & Eval RD Patient Assessment Time: [address] Assessment Type: RD Re-Assessment Patient Nutrition Acuity: 2-Moderate Follow Up Date: Apr 05, 2018 Nutritional Comment: 03/22 Pt admitted post hip replacement. Pt on MICHELLE. Pt was eating 100% of meals in med floor. Today reporting nausea and has not been eating. Pt reports occasional choking. Pt may benefit from SPL eval. Alb 3.1. BMI in stage 1 obesity range. Will cont to monitor and encourage intake. MEY 03/28 Pt eating 75-100% of small portions. Pt doesn't always order a high protein food with her meals. Pt had nausea which may have affected intake. Will put protein powder in appropriate foods and offer nutr supplment if no high protein food ordered. Will cont to monitor and encourage intake. PAT GIRALDO Mar 28, 2018 15:08
[2018-03-28 16:00] VITALS: BP 158/76
[2018-03-28] MEDS: CALCIUM CARBONATE 500 MG CHEW PO PRN (17:15)
--- NOTE | 2018-03-28 18:17 | RADIOLOGY IMAGING REPORT ---
FACILITY: [facility] PATIENT NAME: Lainey Thayer : 1940 MR: [id number] V: [id number] EXAM DATE: ORDERING PHYSICIAN: ALESIA SÁNCHEZ TECHNOLOGIST: Location[place] [facility] [place] Patient: Lainey Thayer : 1940 Visit/Account:[id number] Date of Sevice: 03/28/2018 Exam type: ARTHROCENTESIS History: Infection of right hip Comparison: None. Findings: Informed consent was obtained. The patient's right hip was prepped and draped usual sterile fashion. Local anesthesia was accomplished 1% lidocaine. A 22-gauge needle was advanced percutaneously into the anterior aspect the right hip joint. No fluid could be aspirated. Approximately 1 mL of steril e saline was then injected into the hip joint and then we aspirated. The sample was sent to [facility] for evaluation. The procedure was accomplished without apparent complication. The fluoroscopy do se area product was 97.53 micro-Rocha per meter squared IMPRESSION: 1. Successful fluoroscopically guided right arthrocentesis Report Dictated By: Breann Bravo MD at 03/28/2018 6:12 PM Report E-Signed By: Breann Bravo MD at 03/28/2018 6:14 PM WSN:[email or web address]
[2018-03-28 20:30] VITALS: BP 113/71
[2018-03-28] MEDS: amLODIPine BESYL(*) 5 MG TAB PO SCH (20:55)
[2018-03-28] MEDS: LOVASTATIN 20 MG TAB PO SCH (20:56)
[2018-03-28] MEDS: ONDANSETRON 4 MG ODT TABDP SL PRN (23:37)
[2018-03-29] MEDS: [UNRECOGNIZED DRUG - OTHER] PO SCH ×4 (06:08→20:49)
[2018-03-29 08:47] VITALS: BP 125/74
[2018-03-29] MEDS: RANITIDINE HCL 150 MG TAB PO SCH ×2 (08:55→20:49)
[2018-03-29] MEDS: FUROSEMIDE 20 MG TAB PO SCH (08:55)
[2018-03-29] MEDS: DOCUSATE SODIUM 100 MG CAP PO SCH ×2 (08:55→20:49)
[2018-03-29] MEDS: OXYBUTYNIN CHL 5 MG TAB PO SCH ×2 (08:55→20:49)
[2018-03-29] MEDS: POLYETHYLENE GLYCOL 17 GM PKT PO SCH (08:56)
[2018-03-29] MEDS: CALCIUM CARBONATE 500 MG CHEW PO PRN (14:04)
[2018-03-29 15:30] VITALS: BP 133/78
[2018-03-29] MEDS: amLODIPine BESYL(*) 5 MG TAB PO SCH (20:49)
[2018-03-29] MEDS: LOVASTATIN 20 MG TAB PO SCH (20:49)
[2018-03-30] MEDS: [UNRECOGNIZED DRUG - OTHER] PO SCH ×4 (06:34→20:58)
[2018-03-30 07:50] VITALS: BP 132/53
[2018-03-30] MEDS: DOCUSATE SODIUM 100 MG CAP PO SCH ×2 (08:57→20:58)
[2018-03-30] MEDS: POLYETHYLENE GLYCOL 17 GM PKT PO SCH (08:57)
[2018-03-30] MEDS: RANITIDINE HCL 150 MG TAB PO SCH ×2 (08:57→20:58)
[2018-03-30] MEDS: FUROSEMIDE 20 MG TAB PO SCH (08:57)
[2018-03-30] MEDS: OXYBUTYNIN CHL 5 MG TAB PO SCH ×2 (08:57→20:59)
--- NOTE | 2018-03-30 14:32 | Hospitalist Progress Note ---
Subjective Progress Notes Subjective The patient developed redness around her right surgical wound with some drainage of pus and the redness extended down her leg. She was assessed by Dr. Kelly who did an aspiration of fluid surrounding the wound. The culture is no growth to date. He started the patient on dicloxacillin and her wound is much improved per nursing staff. The patient states she did aspirate this morning when taking her pills. She states that now she is coughing up a bit of mucous, but has not had fever or chills. Her O2 requirements have remained stable. Physical Exam Vital Signs Date Time Temp Pulse Resp B/P (MAP) Pulse Ox O2 Delivery O2 Flow Rate FiO2 03/30/18 08:00 91 Nasal Cannula 2.0 03/30/18 07:50 98.1 74 18 132/53 (79) Intake and Output 03/30/18 07:00 Intake Total 1080 ml Balance 1080 ml Intake Oral 1080 ml # Voids 4 General Appearance: Alert, Awake Neuro: No Gross deficits Eyes: PERRLA Cardiovascular: Regular Rate and Rhythm Respiratory: Other (Few rhonchi and wheezing right base. Expiratory wheezing left base.) GI: Soft and Non-Tender Extremities: Warm, Perfused, Edema (2-3+ edema.) Integumentary: Other (Right hip wound with mild erythema surrounding the distal aspect. No obvious drainage. ) Psych: Alert & Oriented X3, Appropriate Mood & Affect Result Diagram: 03/28/18 0823 Assessment and Plan Problems: (1) Wound infection Status: Acute Assessment & Plan: Dr. Kelly has assessed. Cx of fluid aspiration is no growth to date. The patient was started on dicloxacillin. (2) Aspiration into airway Status: Acute Assessment & Plan: The patient aspirated when taking pills this am. She does have increased wheezing bilaterally with some rhonchi on the right. She has not had fever or chills. Her O2 requirements are stable. Will monitor closely and order a CXR if she develops fever or if her O2 requirements increase. (3) Gastritis Status: Acute Assessment & Plan: Improved. No further nausea and vomiting with ranitidine added and ASA and Celebrex stopped. SCDs in place. (4) Nausea & vomiting Status: Acute Assessment & Plan: Improved with treatment as above. (5) Status post hip replacement Status: Acute Assessment & Plan: She had a right ROBERT on 03/08 (9 days prior to admission). A couple of days prior to admission she had a misstep and immediately had pain. Radiographs revealed a periprosthetic subtrochanteric/intertrochanteric fracture of the femur with movement of the stem. She had repair of the fracture 03/18. She is on ASA for DVT/PE prophylaxis. She did develop a localized wound infection. See above. She is now on dicloxacillin. (6) GERD (gastroesophageal reflux disease) Status: Chronic Assessment & Plan: She usually takes Rolaids and OTC treatment. Added Ranitidine for treatment of acid reflux and possible gastritis. (7) HTN (hypertension) Status: Chronic Assessment & Plan: Continue chronic amlodipine and furosemide with parameters. (8) Lower extremity edema Status: Chronic Assessment & Plan: The patient has not been getting her Lasix due to high systolic BP hold parameters. Will decrease the parameters so that she will start receiving her Lasix on a more regular schedule. (9) OAB (overactive bladder) Status: Chronic Assessment & Plan: Continue chronic oxybutynin. (10) Hyperlipemia Status: Chronic Assessment & Plan: Continue chronic lovastatin. (11) COPD (chronic obstructive pulmonary disease) Status: Chronic Assessment & Plan: The patient smoked for 30 years and states she has "a little COPD". She has had low O2 readings at times in the past. Today she has some wheezing. Will add prn Duonebs and continue O2 as needed. (12) CINDY (obstructive sleep apnea) Status: Chronic Assessment & Plan: The patient has her own CPAP machine which will be set up this evening. Time Spent on Plan of Care: < 30 min KOREY BOWMAN MD Mar 30, 2018 14:32
[2018-03-30] MEDS ORDERED: RANI-318 PO (14:40)
--- NOTE | 2018-03-30 14:59 | Hospitalist Depart ---
Discharge Summary Reason for Hosp/Final Diag: (1) Wound infection Status: Acute Hospital Course & Plan: The patient developed redness around her wound and extending down her leg on 03/27/18. Dr. Kelly assessed and aspirated fluid from the wound. The fluid culture was no growth. The patient was started on dicloxacillin qid and will follow up with Dr. Rojas after discharge. (2) Aspiration into airway Status: Acute Hospital Course & Plan: The patient aspirated when taking pills on 03/30 in the am. She did have increased wheezing bilaterally with some rhonchi on the right. She did not had fever or chills. Her O2 requirements were stable. She was mon itored closely. (3) Gastritis Status: Acute Hospital Course & Plan: The patient had nausea and vomiting thought to be related to her pain medications. She was treated with antiemetics. Ranitidine was added and her ASA and Celebrex were stopped. Her symptoms improved. SCDs were used for DVT prophylaxis. She will need to restart her ASA once she returns home. (4) Nausea & vomiting Status: Acute Hospital Course & Plan: Improved with treatment as above. (5) Status post hip replacement Status: Acute Hospital Course & Plan: She had a right ROBERT on 03/08 (9 days prior to admission). A couple of days prior to admission she had a misstep and immediately had pain. Radiographs revealed a periprosthetic subtrochanteric/intertrochanteric fracture of the femur with movement of the stem. She had repair of the fracture 03/18. She was initially placed on ASA for DVT/PE prophylaxis but this was stopped as noted above. SCDs were used for DVT prophylaxis. She did develop a localized wound infection. See above. She was treated with dicloxacillin. (6) GERD (gastroesophageal reflux disease) Status: Chronic Hospital Course & Plan: The patient takes Rolaids and OTC treatment. Ranitidine was added for treatment of acid reflux and possible gastritis. Will continue this at discharge. (7) HTN (hypertension) Status: Chronic Hospital Course & Plan: The patient was continued on chronic amlodipine and furosemide with parameters. (8) Lower extremity edema Status: Chronic Hospital Course & Plan: The patient was not getting her Lasix due to high systolic BP hold parameters.The parameters were decreased so that she received her Lasix on a more regular schedule. (9) OAB (overactive bladder) Status: Chronic Hospital Course & Plan: She was continued on chronic oxybutynin. (10) Hyperlipemia Status: Chronic Hospital Course & Plan: She was continued on chronic lovastatin. (11) COPD (chronic obstructive pulmonary disease) Status: Chronic Hospital Course & Plan: The patient smoked for 30 years and she stated she has "a little COPD". She denied using O2 or breathing treatments at home. She admitted to having low O2 readings at times in the past. She required O2 at 2 liters per NC to keep her saturations reasonable while on ECF. Will discharge on O2 and have her F/U with her PCP for further evaluation. (12) CINDY (obstructive sleep apnea) Status: Chronic Hospital Course & Plan: The patient used her own CPAP machine while on ECF. Departure Weight (Pounds): 189 Weight (Ounces): 2.0 Result Diagram: 03/28/18 0823 Condition: Improved Discharge: Home, Home Health PT/OT Follow Up For: PT For Strengthening Home Health RN Follow Up For: Nursing Assessment Discharge Code Status: DNR, DNI Time Spent: < 30 min Discharge Instructions Home Meds Active Scripts Ranitidine Hcl (RANITIDINE HCL) 150 Mg Tablet, 150 MG PO BID for gastritis, #60 TAB Prov:KOREY BOWMAN MD 03/30/18 Reported Medications Meloxicam (MELOXICAM) 15 Mg Tablet, 15 MG PO QAM 03/23/18 Lovastatin (LOVASTATIN) 40 Mg Tablet, 40 MG PO QPM 03/23/18 Amlodipine Besylate (AMLODIPINE BESYLATE) 5 Mg Tablet, 5 MG PO QPM, TAB 03/23/18 Furosemide (FUROSEMIDE) 20 Mg Tablet, 20 MG PO QAM, TAB 03/23/18 Sodium Bicarbonate/Sodium Cit (MARGAUX-SELTZER HEARTBURN TAB EFF) 1 Each Tablet.eff, 1 EACH PO PRN 03/23/18 Aspirin (ASPIRIN) 325 Mg Tablet, 325 MG PO QDAY, TAB 03/23/18 Cranberry (CRANBERRY) 400 Mg Capsule, 4200 MCG PO QDAY, CAPSULE 03/23/18 Cholecalciferol (Vitamin D3) (VITAMIN D) 2,000 Unit Capsule, 2000 UNIT PO DAILY, CAPSULE 03/23/18 Activated Charcoal (Charcocaps) 260 Mg Capsule, PRN PRN for GAS 03/23/18 Cordova-3 Fatty Acids/Fish Oil (FISH OIL 1,000 MG CAPSULE) 1 Each Capsule, 2 EACH PO, CAPSULE 03/23/18 Hydrocodone Bit/Acetaminophen (NORCO 7.5-325 TABLET) 1 Each Tablet, 1-2 TAB PO Q4-6H PRN for PAIN, #42 03/09/18 Oxybutynin Chloride (OXYBUTYNIN CHLORIDE) 5 Mg Tablet, 5 MG PO BID, TAB 03/08/18 Cetirizine Hcl (ZYRTEC) 10 Mg Capsule, 10 MG PO PRN, CAPSULE 03/04/18 Discontinued Reported Medications Aspirin/Sod Bicarb/Citric Acid (Margaux-Holden Es Tab Eff) 500 Mg-1,985 Mg-1,000 Mg Tablet.eff 03/23/18 Aspirin (ASPIRIN) 325 Mg Tablet, 325 MG PO QDAY for 30 Days, TAB 03/10/18 Meloxicam (MELOXICAM) 15 Mg Tablet, 15 MG PO QDAY 03/04/18 Furosemide (FUROSEMIDE) 20 Mg Tablet, 1 TAB PO QDAY, TAB 03/04/18 Amlodipine Besylate (AMLODIPINE BESYLATE) 5 Mg Tablet, 1 TAB PO QDAY, TAB 03/04/18 Lovastatin (LOVASTATIN) 40 Mg Tablet, 40 MG PO QDAY 03/04/18 Follow up Referrals: Family Practice - In One Week with Dandre Erwin PA-C Orthopedics - In One Day @ [facility] with ALESIA ROJAS MD Diet: Regular Activity: As Tolerated Special Instructions: Follow up appointment with Dr. Rojas in [place] Apr 13 at 9:30. Follow up with Dandre Erwin PA-C in 1-2 weeks for reassessment regarding need for ongoing O2. Copies to: ALESIA ROJAS MD; DANDRE ERWIN PA-C ; [id number] Certification Face to Face Home Health Certification Institutional Provider conducted the [id number] encounter. Electronic Undersigning Physician Certifies Home Health. I certify that the patient has been under my care and that I had a [id number] encounter that meets the physician [id number] encounter requirements with this patient. This patient is home-bound due to safety issues and continues to require assistance with ADL's. I certify that based on my findings, that Nursing, Aides and the following Home Health services are medically necessary: PT Medical Necessity: Nursing, Rehab Date Face to Face Conducted: Mar 30, 2018 KOREY BOWMAN MD Mar 30, 2018 14:59
--- NOTE | 2018-03-30 15:34 | Antimicrobial Stewardship ---
Antimicrobial Time Out Antimicrobial Stewardship MD Service: Other (ORTHO SUGR) Indications: Other (POST OP) Antimicrobial Used DICLOXACILLIN 500MG PO 4 TIMES DAILY Start Date: Mar 27, 2018 Culture Results: No (NO GROWTH) Eligible for PO Conversion Eligable for PO Conversion: Yes (ALREADY ON PO) Reviewed with Provider Reviewed w/ Provider on Rounds: No Comments Comments PATIENT IS TAKING DICLOXACILLIN FOR POST OP AND WILL CONTINUE FOR ANOTHER WEEK PER PROVIDER KAVYA RICE Mar 30, 2018 15:34
[2018-03-30 17:25] VITALS: BP 117/86
[2018-03-30] MEDS: amLODIPine BESYL(*) 5 MG TAB PO SCH (20:58)
[2018-03-30] MEDS: LOVASTATIN 20 MG TAB PO SCH (20:59)
[2018-03-31] MEDS: [UNRECOGNIZED DRUG - OTHER] PO SCH ×4 (06:29→20:26)
[2018-03-31 08:00] VITALS: BP 154/61
[2018-03-31] MEDS: FUROSEMIDE 20 MG TAB PO SCH (09:00)
[2018-03-31] MEDS: POLYETHYLENE GLYCOL 17 GM PKT PO SCH (09:00)
[2018-03-31] MEDS: OXYBUTYNIN CHL 5 MG TAB PO SCH ×2 (09:27→20:25)
[2018-03-31] MEDS: RANITIDINE HCL 150 MG TAB PO SCH ×2 (09:27→20:26)
[2018-03-31] MEDS: DOCUSATE SODIUM 100 MG CAP PO SCH ×2 (09:28→20:26)
[2018-03-31] MEDS: amLODIPine BESYL(*) 5 MG TAB PO SCH (20:26)
[2018-03-31] MEDS: ASPIRIN 81 MG ENTERIC COATED PO SCH (20:26)
[2018-03-31] MEDS: LOVASTATIN 20 MG TAB PO SCH (20:26)
[2018-04-01] MEDS: [UNRECOGNIZED DRUG - OTHER] PO SCH ×4 (06:08→20:25)
[2018-04-01 08:00] VITALS: BP 139/68
[2018-04-01] MEDS: POLYETHYLENE GLYCOL 17 GM PKT PO SCH (09:00)
[2018-04-01] MEDS: RANITIDINE HCL 150 MG TAB PO SCH ×2 (09:05→20:25)
[2018-04-01] MEDS: ASPIRIN 81 MG ENTERIC COATED PO SCH ×2 (09:05→20:25)
[2018-04-01] MEDS: DOCUSATE SODIUM 100 MG CAP PO SCH ×2 (09:06→19:36)
[2018-04-01] MEDS: FUROSEMIDE 20 MG TAB PO SCH (09:06)
[2018-04-01] MEDS: OXYBUTYNIN CHL 5 MG TAB PO SCH ×2 (09:06→20:25)
--- NOTE | 2018-04-01 14:25 | OT ECF NOTE ---
Type of Note: Discharge Note Primary Medical Diagnosis: Generalized weakness s/p revision of ROBERT femoral component, ORIF of femur fx. Date of initial ROBERT: 03/08/18. Date of revision: 03/18/18. Precautions: WBAT, Posterior hip precautions, avoid strengthening for 6-8 weeks Occupational Therapy Evaluation Date: 03/21/18 SUBJECTIVE: Prior Hospitalization: [facility]: Initial ROBERT: 03-08-18 thru 03/10/18. Revision 03/17/18 thru 03/21/18 Prior Level of Function: Prior to admission for revision, pt reports ADLs/IADLs were going well. She was (I) with ADLs and occasional assist from sons for IADLs. Pt typically makes frozen meals and was ambulating with a RW. Pt is able to recall 3/3 posterior hip precautions. 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 Medical Complications/Past Medical History: HTN, overactive bladder, hyperlipemia Psychosocial Support: Sons who also reside in [place] Pain Scale (0-10): No pain reported supine in bed OBJECTIVE: Strength: MMT: Right Left Shoulder Flexion WFL WFL Elbow Flexion WFL WFL Wrist Extension WFL WFL Needle Valve Operator WFL WFL (5= normal, 4= good, 3= fair, 2= poor, 1= trace) ROM: Both upper extremities, WFL Functional Transfer: Assistive Device: Front wheeled walker Transfer Ability: Mod (I) ADL: Upper body dressing: Assistive device: None Upper body dressing ability: Independent Lower body dressing: Assistive device: Vascular Manager, Sock Aid Lower body dressing ability: Mod (I) Toileting: Assistive device: Raised toilet seat Toileting ability: Mod (I) Grooming/hygiene: Assistive device: None Grooming ability: Independent Bathing: Assistive device: Shower chair Bathing ability: Mod (I) Standardized Assessment: Garrett Index of Activities of Daily Livin/20 upon initial evaluation. upon discharge. ASSESSMENT: Mitali presented to [facility] requiring increased assist for ADLs/IADLs s/p ROBERT revision. She has met all skilled OT goals and presents with no further questions/concerns for OT at time of discharge. Problem List/Current Limitations: Pain Decreased activity tolerance Decreased ROM Generalized weakness Short Term Goals: 1) Pt will be Mod (I) UB/LB dressing. GOAL MET. 2) Pt will be Independent grooming/hygiene. GOAL MET. 3) Pt will be Mod (I) toilet task. GOAL MET. 4) Pt will be Mod (I) shower task. GOAL MET. 5) Pt Garrett Index of ADLs score will improve by 2 points. GOAL MET. 6) Pt will be Mod (I) light meal prep task.GOAL MET. Halfway Goals: Return home and resume previous services Patient Goals: Improved bed mobility and functional mobility prior to return home Rehabilitation Prognosis: Good Barriers to Discharge: None identified at this time PLAN: The patient will discharge home with PT services. Thank you for this referral. If you have any questions, concerns, or comments about this report or plan, please contact me at . Leigh Ann Contreras MS, OTR/L Occupational Therapist [facility]ORAIDA
--- NOTE | 2018-04-01 14:33 | PT ECF NOTE ---
Type of Note: Discharge Summary Primary Medical Diagnosis: Pt is s/p ROBERT on 03/08/18 with revision 03/18/18 due periprosthetic subtrochanteric/intertrochanteric fx with movement of the stem. Pt is WBAT with posterior hip precautions. Physical Therapy Evaluation Date: 03/21/18 SUBJECTIVE: Prior Hospitalization: [facility] for ROBERT 03/08/18 Prior Level of Function: Pt utilized a RW for ambulation house-hold distances and "did not get out much" but was still driving. Prior Living Status: Single level house, Alone, Assist by family who also live in [facility] Services: Support adequate, Home health care/home PT visits Home Accessibility: Ramp, All needs on one level, Walk-in shower Equipment Owned: Front wheeled walker, Toilet riser, Tub/shower chair Medical Complications/Past Medical History: see [employer], also Pt vomiting blood upon eval, thus, mobility deferred. Psychosocial Support: Supportive children Pain Scale (0-10): none reported at time of eval. OBJECTIVE: Bed mobility: Mod I Transfers: Mod I Gait x 275' Mod I with RW demonstrating heel-toe gait pattern. Ascend/descend 4 stairs SBA Independent with hip precautions. ASSESSMENT: Pt has progressed with with skilled PT meeting all goals with the exception of stairs at Mod I level. Pt is currently SBA but does not have to ascend/descend stairs in home environment. Pt is to have home health PT at [place]. Problem List/Current Limitations: Pain, Decreased activity tolerance, Decreased strength, Decreased ROM, Decreased balance, Generalized weakness, Nausea Short Term Goals: 1. Mod I bed mobility. 2. Mod I transfers from a variety of surfaces. 3. Mod I gait x 150' with RW. 4. Demonstrate a heel-strike with both feet during ambulation without verbal cueing in order to improve balance. 5. Independent with hip precautions. 6. Mod I ascend/descend 1 step to simulate curb. Fdc Goals: Return home. Patient Goals: Return home. Rehabilitation Prognosis: Good Barriers for Discharge: None identified at this time. PLAN: DC home with home health PT. Thank you for this referral. If you have any questions, concerns, or comments about this report or plan, please contact me at . Sadaf Mayes, PT, DPT, GCS MTDD
[2018-04-01] MEDS ORDERED: [UNRECOGNIZED DRUG - CODE] PO (14:47)
[2018-04-01] MEDS ORDERED: DICL500C66 PO (14:49)
[2018-04-01 16:20] VITALS: BP 133/75
[2018-04-01 19:40] VITALS: BP 128/75
[2018-04-01] MEDS: LOVASTATIN 20 MG TAB PO SCH (20:25)
[2018-04-01] MEDS: amLODIPine BESYL(*) 5 MG TAB PO SCH (20:25)
[2018-04-02] MEDS: [UNRECOGNIZED DRUG - OTHER] PO SCH ×2 (06:45→11:30)
[2018-04-02 07:32] VITALS: BP 137/80
[2018-04-02] MEDS: ASPIRIN 81 MG ENTERIC COATED PO SCH (08:34)
[2018-04-02] MEDS: OXYBUTYNIN CHL 5 MG TAB PO SCH (08:34)
[2018-04-02] MEDS: RANITIDINE HCL 150 MG TAB PO SCH (08:34)
[2018-04-02] MEDS: FUROSEMIDE 20 MG TAB PO SCH (08:34)
[2018-04-02] MEDS: DOCUSATE SODIUM 100 MG CAP PO SCH (08:34)
[2018-04-02] MEDS: POLYETHYLENE GLYCOL 17 GM PKT PO SCH (09:00)
== END 2018-04-02 12:00 | disposition home health service (06) | DRG 560 ==
LOC: ECF 10:25
PROVIDERS: ADMIT Family Medicine; ATTEND Family Medicine
PROC: 5A09357 Assistance with Respiratory Ventilation, Less than 24 Consecutive Hours, Continuous Positive Airway Pressure (ICD-10-PCS; principal; 2018-03-23)
DX: M97.01XD Periprosthetic fracture around internal prosthetic right hip joint, subsequent encounter (principal); T81.41XA Infection following a procedure, superficial incisional surgical site, initial encounter; K21.9 Gastro-esophageal reflux disease without esophagitis; I10 Essential (primary) hypertension; N32.81 Overactive bladder; E78.5 Hyperlipidemia, unspecified; K29.70 Gastritis, unspecified, without bleeding; J44.9 Chronic obstructive pulmonary disease, unspecified; T17.920A Food in respiratory tract, part unspecified causing asphyxiation, initial encounter; L08.9 Local infection of the skin and subcutaneous tissue, unspecified; G47.33 Obstructive sleep apnea (adult) (pediatric); Y92.230 Patient room in hospital as the place of occurrence of the external cause; Z87.891 Personal history of nicotine dependence; X50.1XXD Overexertion from prolonged static or awkward postures, subsequent encounter
CPT/HCPCS: 20610; 36415; 74018; 77002; 82040; 82247; 82310; 82374; 82435; 82565; 82947; 84075; 84132; 84155; 84295; 84450; 84460; 84520; 85025; 86140; 87071; 87073; 87205; 89050; 94660; 97162; 97165; Q0169; S0119

== ENCOUNTER 2018-09-06 00:16 | Inpatient (IN) | payer MEDICARE, OTHER ==
[2018-03-18 08:45] VITALS: Ht 162.6 cm; Wt 76.2 kg
[2018-09-05 16:16] LABS: INR 1.04
[2018-09-06] VITALS (15 sets, daily range): BP systolic 105–145; BP diastolic 55–108
[~2018-09-06] VITALS: Ht 162.6 cm; Wt 76.2 kg
[~2018-09-06 00:16] MED LIST changes: +ACTI260C; -AMLO-111 PO; +AMLO-125 PO; +CHOL200021 PO; +CRAN400C2; +DICL500C66 PO; +FAMO20TA28 PO; +MELO-205 PO; +OMEG-11 PO; +RANI-318 PO; +SODI1TAB2 PO; +[UNRECOGNIZED DRUG - CODE]; +[UNRECOGNIZED DRUG - CODE] PO
--- NOTE | 2018-09-06 05:14 | LEVENE H&P ---
DATE OF ADMISSION: September 06, 2018 IDENTIFICATION/CHIEF COMPLAINT Mitali is a 77-year-old woman with chief complaint of left hip pain. HISTORY OF PRESENT ILLNESS Patient has a longstanding history of hip arthritis, progressively painful and debilitating, refractory to conservative care. Surgery is indicated to relieve symptoms after failure of nonoperative measures. PAST MEDICAL HISTORY Notable for hypercholesterolemia, irregular heartbeat, hypertension, sleep apnea and oxygen use, migraine headaches, osteoarthritis. PAST SURGICAL HISTORY Notable for contralateral hip replacement and revision, tonsillectomy, adenoidectomy, treatment for uterine prolapse, bilateral tubal ligation. ALLERGIES She has no known drug allergies. She does have hay fever. CURRENT MEDICATIONS 1. Lovastatin 40 mg p.o. daily. 2. Amlodipine 5 mg p.o. daily. 3. Furosemide 20 mg p.o. daily. 4. Mobic 15 mg p.o. daily. 5. Oxybutynin 5 mg p.o. b.i.d. 6. Zyrtec p.r.n. 7. Vitamins. SOCIAL HISTORY Notable for smoking three packs of cigarettes per day for 30 years, quitting in 1990. She drinks alcohol rarely. REVIEW OF SYSTEMS Negative. FAMILY HISTORY Notable for mother with emphysema and father with restrictive lung disease. PHYSICAL EXAMINATION GENERAL: This is a well-developed, well-nourished female who appears stated age. HEENT: Normocephalic, atraumatic. NECK: Supple. LUNGS: Clear. HEART: Regular. ABDOMEN: Soft. ORTHOPEDIC: The left hip is exquisitely painful to rotation. She is quite stiff. She is about an inch short by gross clinical measurement compared to contralateral. Hip girdle strength is good. Skin envelope is intact. Calves nontender. Neurovascular function intact. Radiographs demonstrate end-stage hip arthritis. ASSESSMENT Left hip degenerative joint disease, refractory to conservative care. PLAN Per patient request, proceed with total hip arthroplasty. Nature of the procedure, risks, benefits, and the anticipated rehab course were outlined. Risks include but are not limited to , major medical or anesthetic complication, infection, neurovascular injury, fracture, tendon rupture, instability, leg length discrepancy, implant loosening, migration, or failure, persistent or recurrent pain, need for additional surgery, and other unforeseen. She understands and wishes to proceed. Signed permit is placed in the chart. No guarantees are given or implied. [facility]
[2018-09-06] MEDS ORDERED: NORMOSOL R SOLN(*) 1000 ML BAG 1,000 ML IV PRN ×2 (06:30→11:00)
[2018-09-06] MEDS ORDERED: CELECOXIB 200 MG CAP PO ONE (06:30)
[2018-09-06] MEDS ORDERED: FAMOTIDINE 20 MG TAB PO ONE (06:30)
[2018-09-06] MEDS ORDERED: LIDOCAINE/SOD BICARB 8.4% SYR ID ONE (06:30)
[2018-09-06] MEDS ORDERED: PREGABALIN 75 MG CAPSULE PO ONE (06:30)
[2018-09-06] MEDS ORDERED: ACETAMINOPHEN 500 MG TAB PO ONE (06:30)
[2018-09-06] MEDS ORDERED: MIDAZOLAM 2 MG/2 ML VIAL IVP PRN ×2 (06:30→08:00)
[2018-09-06] MEDS ORDERED: ceFAZolin(*) 2GM/D5W 50ML 50 ML IVPB ONE (06:45)
[2018-09-06] MEDS ORDERED: TRANEXAMIC AC 1000 MG/10ML SDV 1,000 MG in DEXTROSE 5% 50 ML BAG 50 ML IV ONE (06:45)
[2018-09-06] MEDS ORDERED: ROPIVACAINE/EPI/CLONIDINE/KET 50 ML SYRINGE INJ ONE (06:45)
[2018-09-06] MEDS ORDERED: fentaNYL CITR 100 MCG/2 ML AMP ONE (06:51)
[2018-09-06] MEDS ORDERED: PROPOFOL EMUL(*) 10MG/ML 20 ML 20 ML ONE (06:52)
[2018-09-06] MEDS ORDERED: KETAMINE HCL-NS 50 MG/5 ML SYR ONE (06:52)
[2018-09-06] MEDS ORDERED: LIDOCAINE MPF 1% 5 ML VIAL ONE (06:52)
[2018-09-06] MEDS ORDERED: DEXAMETHASONE SOD PHOS 10MG/ML ONE (06:52)
[2018-09-06] MEDS ORDERED: ONDANSETRON 4 MG/2 ML VIAL ONE (06:52)
[2018-09-06] MEDS ORDERED: PHENYLEPHRINE 10 MG/1 ML VIAL ONE (06:54)
[2018-09-06] MEDS ORDERED: VANCOMYCIN 1 GM VIAL ONE (06:54)
[2018-09-06] MEDS ORDERED: MIDAZOLAM 2 MG/2 ML VIAL ONE (07:37)
[2018-09-06] MEDS ORDERED: GLYCOPYRROLATE 1 MG/5 ML INJ ONE (08:01)
[2018-09-06] MEDS ORDERED: diphenhydrAMINE 50 MG/ML VIAL IVP PRN (11:00)
[2018-09-06] MEDS ORDERED: ACETAMINOPHEN 325 MG TAB PO PRN (11:00)
[2018-09-06] MEDS ORDERED: ZOLPIDEM TARTRATE 5 MG TAB PO PRN (11:00)
[2018-09-06] MEDS ORDERED: PROMETHAZINE 25 MG/ML 1 ML AMP IVP PRN (11:00)
[2018-09-06] MEDS ORDERED: FLUSH 10 ML SYR IVP PRN (11:00)
[2018-09-06] MEDS ORDERED: BENZOCAINE/MENTHOL 1 EACH LOZG PO PRN (11:00)
[2018-09-06] MEDS ORDERED: MAGNESIUM HYDROXIDE* 30ML UDCP PO PRN (11:00)
[2018-09-06] MEDS ORDERED: DIAZEPAM 5 MG TAB PO PRN (11:00)
[2018-09-06] MEDS ORDERED: diphenhydrAMINE 25 MG CAP PO PRN (11:00)
[2018-09-06] MEDS ORDERED: BISACODYL 10 MG SUPP PR PRN (11:00)
--- NOTE | 2018-09-06 12:01 | RADIOLOGY IMAGING REPORT ---
FACILITY: [facility] PATIENT NAME: Lainey Thayer : 1940 MR: [id number] V: [id number] EXAM DATE: ORDERING PHYSICIAN: ALESIA SÁNCHEZ TECHNOLOGIST: Location: [facility] Patient: Lainey Thayer : 1940 Visit/Account:[id number] Date of Sevice: 09/06/2018 PELVIS HISTORY: POST-OP PLACEMENT Postop pelvic film FINDINGS: Status post left hip arthroplasty good positioning the femoral and acetabular components. Typical po stop soft tissue changes noted in the periarticular soft tissues. Well-maintained previous right hip arthroplasty. IMPRESSION: 1. Postop left hip arthroplasty as described. Report Dictated By: Phong Cotto MD at 09/06/2018 11:56 AM Report E-Signed By: Phong Cotto MD at 09/06/2018 11:57 AM WSN:[email or web address]
--- NOTE | 2018-09-06 12:19 | OPERATIVE REPORT 1 ---
EVENT DATE: September 06, 2018 SURGEON: Benito Rojas MD ANESTHESIOLOGIST: Dwight Prescott MD ANESTHESIA: General plus spinal. PIPE COVERER HELPER: Tawanda Singh PA-C PREOPERATIVE DIAGNOSIS Left hip degenerative joint disease with severe erosion. POSTOPERATIVE DIAGNOSIS 1. Left hip degenerative joint disease with severe erosion. 2. Full-thickness abductor tendon tear of the anterior two-thirds. PROCEDURES PERFORMED 1. Left total hip arthroplasty. 2. Repair of the common adductor tendon of the gluteus minimus and gluteus medius. ESTIMATED BLOOD LOSS Minimal. DRAINS None. SPECIMENS None. COMPLICATIONS None apparent. IMPLANTS Photonic Materials System with a Tritanium hemispherical cluster-hole shell, 54, with four 6.5 cancellous bone screws and standard X3 polyethylene 0-degree liner to accommodate the 36 mm head. The stem is a cemented Accolade C 132-degree, size 5, with a 36 mm standard neck length, Biolox ceramic U-40 femoral taper head. She also has a medium bone plug and an OmniFit 14 mm distal cement spacer. INDICATIONS Mitali has intractable pain that is felt related to end-stage hip arthritis. Surgery is indicated to relieve symptoms after failure of non-operative measures. DESCRIPTION OF PROCEDURE The patient was taken to the operating room and placed supine on the operating table. General anesthesia was induced after spinal block was administered by the anesthesiologist. Antibiotics and TXA were administered IV. She was positioned in the right lateral decubitus on a well-padded peg board with the pelvis secured in a vertical position. All bony prominences and superficial nerves were well padded. The left hip girdle and lower extremity were prepped and draped in the usual sterile fashion for hip arthroplasty. A small posterior lateral incision was made and carried down to the skin and subcutaneous to the deep fascia. Fascia was incised over the tip of the trochanter and extended distally in line with the femur and proximally in line with the barrett fibers. The barrett fibers were split bluntly. There was a markedly thickened trochanteric bursa. This was excised, revealing a surprise finding of the full- thickness tear of the anterior two-thirds of the abductor mechanism with mild retraction. Sclerosis of the lateral side of the troch is noted. Next, an L- capsulotomy/tenotomy was made with a horizontal limb above the piriformis after protecting the abductor mechanism with a blunt Hohmann. The external rotators and the capsule were released off the posterior femur. Femoral head was dislocated. End-stage arthritis is noted. A 1.57 neck cut was made, consistent with preoperative planning. The femoral head was extracted. The femur was then translocated anteriorly due to severe osteopenia. Great care was taken to avoid injury in the femur during this process. Points of the retractors were placed, tips down on bone, to avoid injury to critical neurovascular structures. A dilated and eroded superior acetabulum was noted as expected. Pulvinar and labrum were excised. Transverse acetabular ligament was identified. Acetabulum was prepared carefully with reaming just to get a bit of bleeding bone. Care was taken to avoid taking excessive bone due to known severe bone erosion. Reaming is performed in 2 mm increments up to 52. We were getting close to the rim and then at 53, 1 mm increment expansion was performed, and a trial 54 seems to fit well. Due to poor bone quality, initially the Tritanium cup was inserted without further reaming but this does not seat fully and, therefore, a 54 reamer is used to touch the bone to allow this to seat adequately. It seats down with excellent bone contact against bleeding bone but due to poor bone quality and graft, significant adjuvant fixation is felt to be needed. Four peripheral screws were placed using standard technique and solid fixation is achieved, positioned to about 45 degrees of abduction and 15-20 degrees of anteversion. Due to an extremely stiff spine and scoliosis, care was taken to make sure that the cup is relatively opened and anteverted to assure adequate stability in the circumstance. After inserting the liner in the clean and lavaged shell, attention was turned to femoral preparation. Superior neck was dissected with a cookie-cutter. A Ubaldo awl finds the canal, reaming and broaching were used per requirements of the Accolade C stem. The 5 broach has nice solid fill and trial reduction performed off this. Good adventism of limb length and stability were achievable. Broach was removed. Canal was prepared with a brush and irrigation and then a bone plug is placed beyond the anticipated tip of the stem by 1 or 2 cm. The stem has centralized reattachment. A mix of methacrylate is made and third generation retrograde cement technique is used along with pressurization to prepare the cement mantle. The implant is then inserted, taking care to assure anteversion following the little traverse calcar at about 15 degrees, trying to lateralize as much as possible. When the cement was fully polymerized, trial reduction was performed. Standard was felt to be optimal. The Aldridge taper was lavaged and dried and the actual Biolox head was impacted. Aldridge taper joint was reduced. Good stability is achieved. She is a bit tight as she has been about an inch short for quite some time. There is no undue tension in the sciatic nerve. Neck C bone is roughed at the site of the abductor detachment and two Jesus type whip stitches are placed with #2 FiberWire up into the detached portion of the abductor tendon. Three bone channels were created with a 2.0 drill bit. The passer was used to pass the loops. These were then brought over to the medial side of the troch and after preparing all of these and holding the leg in some abduction these were tied down, securing the abductor tendon repair in place. Wounds were copiously lavaged and meticulous hemostasis assured. Drill holes were in the posterior femur for anatomic reattachment of the external rotators of the capsule. The deep fascia was closed distally with #2 Ethibond and proximally with #2 Vicryl. Subcutaneous is closed with dermal stitches of 3-0 Vicryl and the skin with surgical iveth. Xeroform was applied followed by a sterile dressing and hip wrap. The patient was awakened from anesthesia and taken to the recovery room in stable condition, having tolerated the procedure well. The plan is for partial weightbearing with walker x6 weeks. No abductor strengthening x8 to 10 weeks. Otherwise, standard hip arthroplasty protocol. [facility]
[2018-09-06] MEDS ORDERED: MELO-207 PO (12:24)
[2018-09-06] MEDS ORDERED: CETIRIZINE HCL 10 MG TAB PO PRN (13:10)
--- NOTE | 2018-09-06 13:17 | Hospitalist Consultation ---
History of Present Illness Requesting Physician Dr. Rojas Reason for Consult Medical Management Chief Complaint s/p left hip replacement History of Present Illness She was admitted s/p left hip replacement. It is reported the surgery went well and without complication. History Problems: (1) Hyperlipemia Status: Chronic (2) HTN (hypertension) Status: Chronic (3) OAB (overactive bladder) Status: Chronic Home Meds Reported Medications Meloxicam (MELOXICAM) 15 Mg Tablet, 1 TAB PO DAILY 09/06/18 Famotidine (PEPCID) 20 Mg Tablet, 20 MG PO PRN PRN for HEARTBURN, #10 TAB 08/31/18 Lovastatin (LOVASTATIN) 40 Mg Tablet, 40 MG PO QPM 03/23/18 Amlodipine Besylate (AMLODIPINE BESYLATE) 5 Mg Tablet, 5 MG PO QPM, TAB 03/23/18 Furosemide (FUROSEMIDE) 20 Mg Tablet, 20 MG PO QAM, TAB 03/23/18 Cranberry (CRANBERRY) 400 Mg Capsule, CAPSULE 03/23/18 Cholecalciferol (Vitamin D3) (VITAMIN D) 2,000 Unit Capsule, 2000 UNIT PO DAILY, CAPSULE 03/23/18 Activated Charcoal (Charcocaps) 260 Mg Capsule, PRN PRN for GAS 03/23/18 [place]-3 Fatty Acids/Fish Oil (FISH OIL 1,000 MG CAPSULE) 1 Each Capsule, 2 EACH PO, CAPSULE 03/23/18 Oxybutynin Chloride (OXYBUTYNIN CHLORIDE) 5 Mg Tablet, 5 MG PO BID, TAB 03/08/18 Cetirizine Hcl (ZYRTEC) 10 Mg Capsule, 10 MG PO PRN, CAPSULE 03/04/18 Discontinued Reported Medications Meloxicam (MELOXICAM) 7.5 Mg Tablet, 15 MG PO QDAY 08/31/18 Dicloxacillin Sodium (DICLOXACILLIN SODIUM) 250 Mg Capsule, 500 MG PO ACHS1 for 7 Days, CAPSULE 04/01/18 Sodium Bicarbonate/Sodium Cit (MARGAUX-SELTZER HEARTBURN TAB EFF) 1 Each Tablet.eff, 1 EACH PO PRN 03/23/18 Aspirin (ASPIRIN) 325 Mg Tablet, 325 MG PO QDAY, TAB 03/23/18 Discontinued Scripts Ranitidine Hcl (RANITIDINE HCL) 150 Mg Tablet, 150 MG PO BID for gastritis, #60 TAB Prov:KOREY BOWMAN MD 03/30/18 Allergies: Coded Allergies: No Known Drug Allergies (Unverified , 03/04/18) Patient History: FH: arthritis FATHER FH: emphysema MOTHER Hx Smoking: Yes (2PPD 25 YR HX) Smoking Status: Former Smoker Exposure to Second Hand Smoke?: No When Quit Tobacco?: 1990 Caffeine Intake: Soda Caffeine/Cups Per Day: OCCASIONAL Hx Alcohol Use: No Hx Substance Use Disorder: No Review of Systems All Systems Reviewed/Normal: Yes, Except as Noted Exam Vital Signs Vital Signs Date Time Temp Pulse Resp B/P (MAP) Pulse Ox O2 Delivery O2 Flow Rate FiO2 09/06/18 12:36 91 Nasal Cannula 3.0 09/06/18 12:07 97.6 75 14 145/74 (97) General Appearance: Alert, Awake, No Acute Distress, Afebrile Cardiovascular: Regular Rate and Rhythm Respiratory: No Respiratory Distress, Clear to Auscultation Psych: Alert & Oriented X3, Appropriate Mood & Affect Assessment and Plan Problems: (1) Status post hip replacement Status: Acute Assessment & Plan: Followed by Dr. Rojas. She will be placed on Aspirin for DVT prophylaxis. Will give ranitidine to help with stomach while on ASA. (2) Hyperlipemia Status: Chronic Assessment & Plan: Continue chronic simvastatin. (3) HTN (hypertension) Status: Chronic Assessment & Plan: Continue chronic amlodipine with hold parameters. Hold Lasix at this time. (4) OAB (overactive bladder) Status: Chronic Assessment & Plan: Continue chronic oxybutynin. Venous Thromboembolism Antithrombotics Is Pt On Any Antithrombotics?: No Exam Sepsis Risk: No Definite Risk Problem Qualifiers (1) Status post hip replacement: Laterality: left Qualified Codes: Z96.642 - Presence of left artificial hip joint (2) HTN (hypertension): Hypertension type: essential hypertension Qualified Codes: I10 - Essential (primary) hypertension CLARK PORTERP September 06, 2018 13:17
[2018-09-06] MEDS: APAP/HYDROCODONE 325/7.5 TAB PO PRN (13:26)
[2018-09-06] MEDS ORDERED: NS(*) 0.9% 500 ML BAG 500 ML IV PRN (14:05)
--- NOTE | 2018-09-06 15:15 | NUR ---
Physical Therapy Impression PT eval with ther ex and transfer trng; pt limited to 50% weight bearing on L) LE and demos good understanding of off loading onto B) UE's for support. Physical Therapy Goals 1. Pt to ambulate 200' with least restrictive device maintaining a step-to gait pattern to ensure no more than 50% weight bearing on L) LE. 2. Pt to be modified indep with supine to/from sit with compliance for ROBERT precautions 3. Pt to be indep with supine, sitting and standing ther ex with exception of abductor strengthening. 4. Pt to be modified indep with sit to/from stand transfers with 50% weight bearing or less. Patient's Goals
[2018-09-06] MEDS: ceFAZolin(*) 1 GM VIAL 1 GM in NS(*) 0.9% 100 ML MINI-BAG 100 ML IVPB SCH (16:58)
[2018-09-06] MEDS: CELECOXIB 200 MG CAP PO SCH (16:59)
[2018-09-06] MEDS: amLODIPine BESYL(*) 5 MG TAB PO SCH (17:00)
[2018-09-06] MEDS: LOVASTATIN 20 MG TAB PO SCH (17:00)
[2018-09-06] MEDS: OXYBUTYNIN CHL 5 MG TAB PO SCH (21:20)
[2018-09-06] MEDS: RANITIDINE HCL 150 MG TAB PO SCH (21:20)
[2018-09-07 01:32] VITALS: BP 117/58
[2018-09-07] MEDS: ceFAZolin(*) 1 GM VIAL 1 GM in NS(*) 0.9% 100 ML MINI-BAG 100 ML IVPB SCH (01:34)
[2018-09-07 05:56] VITALS: BP 113/53
[2018-09-07] MEDS: CELECOXIB 200 MG CAP PO SCH (08:40)
[2018-09-07] MEDS: OXYBUTYNIN CHL 5 MG TAB PO SCH ×2 (09:00→20:44)
[2018-09-07] MEDS: RANITIDINE HCL 150 MG TAB PO SCH ×2 (09:00→20:44)
[2018-09-07] MEDS: ASPIRIN 325 MG TAB PO SCH (09:00)
[2018-09-07 11:30] VITALS: BP 104/68
--- NOTE | 2018-09-07 12:46 | Hospitalist Progress Note ---
Subjective Progress Notes Subjective SOPHIA overnight, working with PT. Physical Exam Vital Signs Date Time Temp Pulse Resp B/P (MAP) Pulse Ox O2 Delivery O2 Flow Rate FiO2 09/07/18 05:56 99.0 64 16 113/53 (73) 92 Nasal Cannula 2.0 Intake and Output 09/07/18 07:00 Intake Total 2710 ml Output Total 150 ml Balance 2560 ml Intake Oral 1060 ml IV Total 1650 ml Output Estimated Blood Loss 150 ml # Voids 6 General Appearance: Alert, Awake, No Acute Distress Neuro: No Gross deficits Cardiovascular: Normal Rhythm & Peripheral Pulses Respiratory: No Respiratory Distress Extremities: Warm, Pulses, Perfused Assessment and Plan Problems: (1) Status post hip replacement Status: Acute Assessment & Plan: Followed by Dr. Rojas. She will be placed on Aspirin for DVT prophylaxis. Will give ranitidine to help with stomach while on ASA. Recommend stopping Celebrex due to previous GI bleed and using full strength ASA for one month. (2) Hyperlipemia Status: Chronic Assessment & Plan: Continue chronic simvastatin. (3) HTN (hypertension) Status: Chronic Assessment & Plan: Continue chronic amlodipine with hold parameters. Hold Lasix at this time. (4) OAB (overactive bladder) Status: Chronic Assessment & Plan: Continue chronic oxybutynin. Exam Sepsis Risk: No Definite Risk Problem Qualifiers (1) Status post hip replacement: Laterality: left Qualified Codes: Z96.642 - Presence of left artificial hip joint (2) HTN (hypertension): Hypertension type: essential hypertension Qualified Codes: I10 - Essential (primary) hypertension VJ IQBAL DO September 07, 2018 12:46
--- NOTE | 2018-09-07 14:09 | NUR ---
ECF Referral - Received referral, met with resident who is known to ECF and it's philosophy. She will certainly qualify for skilled rehab care after her 3 night qualifying stay which will be 09/09 when medically cleared. PASRR negative.
[2018-09-07 15:36] VITALS: BP 106/62
[2018-09-07] MEDS: LOVASTATIN 20 MG TAB PO SCH (17:10)
[2018-09-07] MEDS: amLODIPine BESYL(*) 5 MG TAB PO SCH (17:10)
[2018-09-07 19:34] VITALS: BP 123/67
--- NOTE | 2018-09-07 21:45 | NUR ---
Physical Therapy Impression Pt demos increased indep with bed mobility with CGA and cues to maintain hip precautions. Physical Therapy Goals 1. Pt to ambulate 200' with least restrictive device maintaining a step-to gait pattern to ensure no more than 50% weight bearing on L) LE. 2. Pt to be modified indep with supine to/from sit with compliance for ROBERT precautions 3. Pt to be indep with supine, sitting and standing ther ex with exception of abductor strengthening. 4. Pt to be modified indep with sit to/from stand transfers with 50% weight bearing or less. Patient's Goals
[2018-09-08] MEDS: APAP/HYDROCODONE 325/7.5 TAB PO PRN ×3 (02:14→21:17)
[2018-09-08 02:19] VITALS: BP 128/58
[2018-09-08 08:27] VITALS: BP 143/74
[2018-09-08] MEDS: ASPIRIN 325 MG TAB PO SCH (08:45)
[2018-09-08] MEDS: RANITIDINE HCL 150 MG TAB PO SCH ×2 (08:45→20:24)
[2018-09-08] MEDS: OXYBUTYNIN CHL 5 MG TAB PO SCH ×2 (08:45→20:24)
[2018-09-08 10:48] VITALS: BP 132/71
--- NOTE | 2018-09-08 11:18 | Hospitalist Progress Note ---
Subjective Progress Notes Subjective She was admitted s/p hip replacement. She has no complaints this morning. She had no acute events overnight. Patient Complains of: Cardiovascular: No: Chest Pain Respiratory: No: Shortness of Breath Physical Exam Vital Signs Date Time Temp Pulse Resp B/P (MAP) Pulse Ox O2 Delivery O2 Flow Rate FiO2 09/08/18 10:48 98.9 71 18 132/71 (91) 91 Nasal Cannula 2.0 Intake and Output 09/08/18 07:00 Intake Total 670 ml Balance 670 ml Intake Oral 670 ml # Voids 6 General Appearance: Alert, Awake, No Acute Distress, Afebrile Neuro: No Gross deficits Cardiovascular: Regular Rate and Rhythm Respiratory: No Respiratory Distress, Clear to Auscultation Psych: Alert & Oriented X3, Appropriate Mood & Affect Assessment and Plan Problems: (1) Status post hip replacement Status: Acute Assessment & Plan: Followed by Dr. Rojas. She will be placed on Aspirin for DVT prophylaxis. Will give ranitidine to help with stomach while on ASA. Recommend stopping Celebrex due to previous GI bleed and using full strength ASA for one month. (2) Hyperlipemia Status: Chronic Assessment & Plan: Continue chronic simvastatin. (3) HTN (hypertension) Status: Chronic Assessment & Plan: Continue chronic amlodipine with hold parameters. Will resume Lasix tomorrow. (4) OAB (overactive bladder) Status: Chronic Assessment & Plan: Continue chronic oxybutynin. Exam Sepsis Risk: No Definite Risk Problem Qualifiers (1) Status post hip replacement: Laterality: left Qualified Codes: Z96.642 - Presence of left artificial hip joint (2) HTN (hypertension): Hypertension type: essential hypertension Qualified Codes: I10 - Essential (primary) hypertension CLARK PORTER CERTIFIED DRUG COUNSELOR September 08, 2018 11:18
--- NOTE | 2018-09-08 11:38 | NUR ---
Physical Therapy Impression Pt progressing with distance ambulation within special precautions. Physical Therapy Goals 1. Pt to ambulate 200' with least restrictive device maintaining a step-to gait pattern to ensure no more than 50% weight bearing on L) LE. 2. Pt to be modified indep with supine to/from sit with compliance for ROBERT precautions 3. Pt to be indep with supine, sitting and standing ther ex with exception of abductor strengthening. 4. Pt to be modified indep with sit to/from stand transfers with 50% weight bearing or less. Patient's Goals
--- NOTE | 2018-09-08 12:11 | NUR ---
Physical Therapy Impression Pt addressed safety with ambulation on carpet with continued awareness of 50% weight bearing and safety with stance phase. Physical Therapy Goals 1. Pt to ambulate 200' with least restrictive device maintaining a step-to gait pattern to ensure no more than 50% weight bearing on L) LE. 2. Pt to be modified indep with supine to/from sit with compliance for ROBERT precautions 3. Pt to be indep with supine, sitting and standing ther ex with exception of abductor strengthening. 4. Pt to be modified indep with sit to/from stand transfers with 50% weight bearing or less. Patient's Goals
[2018-09-08 14:36] VITALS: BP 130/109
--- NOTE | 2018-09-08 16:38 | NUR ---
Physical Therapy Impression Pt progressing with small height platform step x 1 reps and 100' ambulation with FWW to maintain 50% weight bearing restriction. Physical Therapy Goals 1. Pt to ambulate 200' with least restrictive device maintaining a step-to gait pattern to ensure no more than 50% weight bearing on L) LE. 2. Pt to be modified indep with supine to/from sit with compliance for ROBERT precautions 3. Pt to be indep with supine, sitting and standing ther ex with exception of abductor strengthening. 4. Pt to be modified indep with sit to/from stand transfers with 50% weight bearing or less. Patient's Goals
[2018-09-08 17:06] VITALS: BP 129/76
[2018-09-08] MEDS: amLODIPine BESYL(*) 5 MG TAB PO SCH (17:07)
[2018-09-08] MEDS: LOVASTATIN 20 MG TAB PO SCH (17:08)
[2018-09-08 23:23] VITALS: BP 115/56
[2018-09-09 02:53] VITALS: BP 124/58
[2018-09-09 07:09] VITALS: BP 130/73
[2018-09-09] MEDS: OXYBUTYNIN CHL 5 MG TAB PO SCH (08:24)
[2018-09-09] MEDS: APAP/HYDROCODONE 325/7.5 TAB PO PRN (08:24)
[2018-09-09] MEDS: ASPIRIN 325 MG TAB PO SCH (08:24)
[2018-09-09] MEDS: RANITIDINE HCL 150 MG TAB PO SCH (08:24)
[2018-09-09] MEDS ORDERED: FUROSEMIDE 20 MG TAB PO SCH ×2 (09:00)
--- NOTE | 2018-09-09 11:22 | Hospitalist Progress Note ---
Subjective Progress Notes Subjective She was admitted s/p hip replacement. She had no acute events overnight. She plans to transfer to [facility] for further rehab. Patient Complains of: Cardiovascular: No: Chest Pain Respiratory: No: Shortness of Breath Physical Exam Vital Signs Date Time Temp Pulse Resp B/P (MAP) Pulse Ox O2 Delivery O2 Flow Rate FiO2 09/09/18 10:27 Nasal Cannula 09/09/18 10:15 94 2.0 09/09/18 07:09 98.9 71 16 130/73 (92) Intake and Output 09/09/18 07:00 Intake Total 1080 ml Balance 1080 ml Intake Oral 1080 ml # Voids 11 # Bowel Movements 1 General Appearance: Alert, Awake, No Acute Distress, Afebrile Neuro: No Gross deficits Cardiovascular: Regular Rate and Rhythm Respiratory: No Respiratory Distress, Clear to Auscultation GI: Soft and Non-Tender Psych: Alert & Oriented X3, Appropriate Mood & Affect Assessment and Plan Problems: (1) Status post hip replacement Status: Acute Assessment & Plan: Followed by Dr. Rojas. She will be placed on Aspirin for DVT prophylaxis. Will give ranitidine to help with stomach while on ASA. Recommend stopping Celebrex due to previous GI bleed and using full strength ASA for one month. (2) Hyperlipemia Status: Chronic Assessment & Plan: Continue chronic simvastatin. (3) HTN (hypertension) Status: Chronic Assessment & Plan: Continue chronic amlodipine with hold parameters. Will resume Lasix tomorrow. (4) OAB (overactive bladder) Status: Chronic Assessment & Plan: Continue chronic oxybutynin. Exam Sepsis Risk: No Definite Risk Problem Qualifiers (1) Status post hip replacement: Laterality: left Qualified Codes: Z96.642 - Presence of left artificial hip joint (2) HTN (hypertension): Hypertension type: essential hypertension Qualified Codes: I10 - Essential (primary) hypertension CLARK PORTER September 09, 2018 11:22
== END 2018-09-09 11:14 | DRG 470 ==
LOC: OR 00:16 → MED 12:05
PROVIDERS: ADMIT Orthopaedic Surgery; ATTEND Orthopaedic Surgery
PROC: 0LQM0ZZ Repair Left Upper Leg Tendon, Open Approach (ICD-10-PCS; 2018-09-06)
PROC: 0SRB049 Replacement of Left Hip Joint with Ceramic on Polyethylene Synthetic Substitute, Cemented, Open Approach (ICD-10-PCS; principal; 2018-09-06 07:22)
DX: M16.12 Unilateral primary osteoarthritis, left hip (principal); S76.212A Strain of adductor muscle, fascia and tendon of left thigh, initial encounter; I10 Essential (primary) hypertension; N32.81 Overactive bladder; M81.0 Age-related osteoporosis without current pathological fracture; E78.00 Pure hypercholesterolemia, unspecified; G47.30 Sleep apnea, unspecified; E78.5 Hyperlipidemia, unspecified; J44.9 Chronic obstructive pulmonary disease, unspecified; Z99.81 Dependence on supplemental oxygen; Z96.641 Presence of right artificial hip joint; Z87.891 Personal history of nicotine dependence
CPT/HCPCS: 36415; 72170; 85610; 86850; 86900; 86901; 97161; C1713; C1776; J0690; J1100; J2001; J2250; J2370; J2405; J2704; J3010; J3370; J3490; J7040; J7060

== ENCOUNTER 2018-09-09 11:17 | Inpatient (IN) | payer MEDICARE, OTHER ==
[2018-03-18 08:45] VITALS: Ht 162.6 cm; Wt 80.3 kg
[~2018-09-09] VITALS: Ht 162.6 cm; Wt 80.3 kg
[2018-09-09] MEDS ORDERED: CETIRIZINE HCL 10 MG TAB PO PRN (12:14)
[2018-09-09] MEDS ORDERED: ACETAMINOPHEN 325 MG TAB PO PRN (12:14)
[2018-09-09] MEDS ORDERED: FUROSEMIDE 20 MG TAB PO SCH (12:14)
[2018-09-09] MEDS ORDERED: amLODIPine BESYL(*) 5 MG TAB PO SCH (12:14)
[2018-09-09] MEDS ORDERED: DIAZEPAM 5 MG TAB PO PRN (12:14)
[2018-09-09] MEDS ORDERED: BISACODYL 10 MG SUPP PR PRN (12:14)
[2018-09-09 12:21] VITALS: BP 136/61
--- NOTE | 2018-09-09 12:42 | Consultant Pharmacy Review ---
Non Destructive Evaluation Technician Review Medication Review Do All Mecications have a Diag: Yes Beers Criteria Medication 2014 Benzodiazapines (long acting): Diazepam (FOR POST OP PAIN/SPASMS) Drugs to Use With Caution Medications Which Cause SIADH: Diuretics (LASIX FOR LE EDEMA) Other General Cautions Patient is post hip fx and is taking diazepam and lortab. She is a high fall risk based on these factors. Concurrent use of Amlodipine and Lovastatin increase the risk for adverse effects of Lovastatin. Monitor for signs of rhabdo/muscle pain. Patient has been taking this combination at home. Pneumococcal Vaccine HX Pneumo Vac ([id number]): No HX Pneumo Vac (Pneumovax): Yes (Thinks may have had this some years ago) Notified? Notified?: No KAVYA RICE September 09, 2018 12:42
--- NOTE | 2018-09-09 13:34 | ECF H&P BLANK ---
[facility] H&P UPDATE History of Present Illness Chief Complaint s/p left hip replacement History of Present Illness She was admitted s/p left hip replacement. It is reported the surgery went well and without complication. History Problems: (1) Hyperlipemia Status: Chronic (2) HTN (hypertension) Status: Chronic (3) OAB (overactive bladder) Status: Chronic Home Meds Reported Medications Meloxicam (MELOXICAM) 15 Mg Tablet, 1 TAB PO DAILY 09/06/18 Famotidine (PEPCID) 20 Mg Tablet, 20 MG PO PRN PRN for HEARTBURN, #10 TAB 08/31/18 Lovastatin (LOVASTATIN) 40 Mg Tablet, 40 MG PO QPM 03/23/18 Amlodipine Besylate (AMLODIPINE BESYLATE) 5 Mg Tablet, 5 MG PO QPM, TAB 03/23/18 Furosemide (FUROSEMIDE) 20 Mg Tablet, 20 MG PO QAM, TAB 03/23/18 Cranberry (CRANBERRY) 400 Mg Capsule, CAPSULE 03/23/18 Cholecalciferol (Vitamin D3) (VITAMIN D) 2,000 Unit Capsule, 2000 UNIT PO DAILY, CAPSULE 03/23/18 Activated Charcoal (Charcocaps) 260 Mg Capsule, PRN PRN for GAS 03/23/18 [place]-3 Fatty Acids/Fish Oil (FISH OIL 1,000 MG CAPSULE) 1 Each Capsule, 2 EACH PO, CAPSULE 03/23/18 Oxybutynin Chloride (OXYBUTYNIN CHLORIDE) 5 Mg Tablet, 5 MG PO BID, TAB 03/08/18 Cetirizine Hcl (ZYRTEC) 10 Mg Capsule, 10 MG PO PRN, CAPSULE 03/04/18 Discontinued Reported Medications Meloxicam (MELOXICAM) 7.5 Mg Tablet, 15 MG PO QDAY 08/31/18 Dicloxacillin Sodium (DICLOXACILLIN SODIUM) 250 Mg Capsule, 500 MG PO ACHS1 for 7 Days, CAPSULE 04/01/18 Sodium Bicarbonate/Sodium Cit (MARGAUX-SELTZER HEARTBURN TAB EFF) 1 Each Tablet.eff, 1 EACH PO PRN 03/23/18 Aspirin (ASPIRIN) 325 Mg Tablet, 325 MG PO QDAY, TAB 03/23/18 Discontinued Scripts Ranitidine Hcl (RANITIDINE HCL) 150 Mg Tablet, 150 MG PO BID for gastritis, #60 TAB Prov:KOREY BOWMAN MD 03/30/18 Allergies: Coded Allergies: No Known Drug Allergies (Unverified , 03/04/18) Patient History: FH: arthritis FATHER FH: emphysema MOTHER Hx Smoking: Yes (2PPD 25 YR HX) Smoking Status: Former Smoker Exposure to Second Hand Smoke?: No When Quit Tobacco?: 1990 Caffeine Intake: Soda Caffeine/Cups Per Day: OCCASIONAL Hx Alcohol Use: No Hx Substance Use Disorder: No Review of Systems All Systems Reviewed/Normal: Yes, Except as Noted Exam Vital Signs Vital Signs Date Time Temp Pulse Resp B/P (MAP) Pulse Ox O2 Delivery O2 Flow Rate FiO2 09/06/18 12:36 91 Nasal Cannula 3.0 09/06/18 12:07 97.6 75 14 145/74 (97) General Appearance: Alert, Awake, No Acute Distress, Afebrile Cardiovascular: Regular Rate and Rhythm Respiratory: No Respiratory Distress, Clear to Auscultation Psych: Alert & Oriented X3, Appropriate Mood & Affect Assessment and Plan Problems: (1) Status post hip replacement Status: Acute Assessment & Plan: Followed by Dr. Rojas. She will be placed on Aspirin for DVT prophylaxis. Will give ranitidine to help with stomach while on ASA. (2) Hyperlipemia Status: Chronic Assessment & Plan: Continue chronic simvastatin. (3) HTN (hypertension) Status: Chronic Assessment & Plan: Continue chronic amlodipine with hold parameters. Hold Lasix at this time. (4) OAB (overactive bladder) Status: Chronic Assessment & Plan: Continue chronic oxybutynin. Venous Thromboembolism Antithrombotics Is Pt On Any Antithrombotics?: No Exam Sepsis Risk: No Definite Risk Problem Qualifiers (1) Status post hip replacement: Laterality: left Qualified Codes: Z96.642 - Presence of left artificial hip joint (2) HTN (hypertension): Hypertension type: essential hypertension Qualified Codes: I10 - Essential (primary) hypertension CLARK PORTER September 06, 2018 13:17 <Electronically signed by TATUM GARNER> D/ 16 16 16 KATI/LEROY CC: The above acute care issues are resolving and/or stable. Patient requires long term and/or skilled rehabilitation and is ready for admission to Extended Care. Any change in condition is described below. CLARK PORTER [facility] September 09, 2018 13:34
--- NOTE | 2018-09-09 15:18 | NUR ---
Occupational Therapy Impression Pt. required verbal cues to maintain hip and weight bearing precautions while transferring/ ambulating to/ from the bathroom.Pt. required SBA to perform toileting activities. Continue with POC. Occupational Therapy Goals 1. Pt. to perform dressing activities with Mod I. 2. Pt. to perform showering activities with Min A. 3. Pt. to perform toileting activities with Mod I. 4. Pt. to improve Garrett Index of ADL score by 2 points. 5. Pt. to perform light meal prep with I. Patient's Goal
--- NOTE | 2018-09-09 15:26 | OT ECF NOTE ---
Type of Note: Initial Note Primary Medical Diagnosis: R TKA (50% weight bearing in R LE and posterior hip precautions) Occupational Therapy Evaluation Date: 09-09-18 SUBJECTIVE: Prior Hospitalization: R TKA surgery on 09-06-18 [facility] Surgical floor until 09-09-18 Prior Level of Function: Independent with all activities with exception of grocery shopping (daughter) Prior Living Status: Single level house Alone Assist by family Community Services: Home Accessibility: Ramp All needs on one level Walk-in shower Equipment Owned: Front wheeled walker Toilet riser Tub/shower chair Medical Complications/Past Medical History: Please refer to chart for details. Psychosocial Support: Supportive daughter in [place]. Pain Scale (0-10): 0/10 OBJECTIVE: Strength: WFL MMT: Right Left Shoulder Flexion [*] [*] Elbow Flexion [*] [*] Wrist Extension [*] [*] Cue Selector [*] [*] (5= normal, 4= good, 3= fair, 2= poor, 1= trace) Functional Transfer: Assistive Device: Front wheeled walker Gait belt Transfer Ability: 1-person assist Verbal cues SBA ADL: Upper body dressing: Assistive device: Upper body dressing ability: N/T Lower body dressing: Assistive device: Lower body dressing ability: N/T Toileting: Assistive device: Raised toilet seat Grab rails Toileting ability: SBA Grooming/hygiene: Standing Assistive device: Grooming ability: SBA Bathing: Assistive device: Bathing ability: N/T Standardized Assessment: Garrett Index of Activities of Daily Living- Pt. scored 12/20 on this index upon Initial Eval. ASSESSMENT: Pt. is a 77 year old female who underwent a Right ROBERT of Dr. Rojas on 09/06/18. Pt. is currently 50% weight bearing on RLE and has posterior hip precautions. Pt. resides alone in [place], [place] in one level home as was Independent with all ADL/ IADL activities, with the exception of assistance from her daughter for grocery shopping. Pt. currently is requiring assistance to complete ADL activities and requires verbal cues to maintain weight bearing and hip precautions. Pt. plans to d/c to home with care after stay on ECF for strengthening/therapy. Problem List/Current Limitations: Pain Decreased WB Decreased activity corinne Decreased strength Decreased ROM Decreased balance Generalized weakness Short Term Goals: 1. Pt. to perform dressing activities with Mod I. 2. Pt. to perform showering activities with Min A. 3. Pt. to perform toileting activities with Mod I. 4. Pt. to improve Garrett Index of ADL score by 2 points. 5. Pt. to perform light meal prep with I. Penitentiary Goals: Return home. Patient Goals: Return home. Rehabilitation Prognosis: Good Barriers to Discharge: Pt. lives alone. PLAN: The patient will benefit from skilled occupational therapy services 5 times per week for 2 weeks including: Ther ex ADL training Safety training Ther act IADL training Transfer training Adaptive equip training Bed mobility Thank you for this referral. If you have any questions, concerns, or comments about this report or plan, please contact me at . Alfreda Moss, OTR/L Occupational Therapist [facility]
[2018-09-09 16:40] VITALS: BP 152/78
--- NOTE | 2018-09-09 16:50 | NUR ---
Physical Therapy Impression PT ECF eval completed; Pt provided with modified handout for supine ther ex to complete through the weekend. No SLR or active Hip abduction strengthening per precautions. Physical Therapy Goals 1. Pt to ambulate 200' with least restrictive device maintaining a step-to gait pattern to ensure no more than 50% weight bearing on L) LE. 2. Pt to be modified indep with supine to/from sit with compliance for ROBERT precautions 3. Pt to be indep with supine, sitting and standing ther ex with exception of abductor strengthening. 4. Pt to be modified indep with sit to/from stand transfers with 50% weight bearing or less. Patient's Goals
[2018-09-09] MEDS: LOVASTATIN 20 MG TAB PO SCH (17:02)
[2018-09-09] MEDS: amLODIPine BESYL(*) 5 MG TAB PO SCH (17:02)
[2018-09-09] MEDS: RANITIDINE HCL 150 MG TAB PO SCH (20:21)
[2018-09-09] MEDS: OXYBUTYNIN CHL 5 MG TAB PO SCH (20:21)
--- NOTE | 2018-09-09 22:53 | PT ECF NOTE ---
Type of Note: Initial Note Primary Medical Diagnosis: L) ROBERT (50% weight bearing in R) LE; no abductor strengthening and posterior hip precautions) Physical Therapy Evaluation Date: 09-09-18 SUBJECTIVE: Prior Hospitalization: L) ROBERT surgery on 09-06-18 [facility] Surgical floor until 09-09-18 Prior Level of Function: Independent with all activities with exception of grocery shopping (daughter) Prior Living Status: Single level house, Alone, Assist by family Community Services: Home Accessibility: Ramp, All needs on one level, Walk-in shower Equipment Owned: Front wheeled walker, Toilet riser, Tub/shower chair Medical Complications/Past Medical History: Please refer to chart for details. Psychosocial Support: Supportive daughter in [place]. Pain Scale (0-10): 0/10 OBJECTIVE: Strength: R) LE 4/5 overall; L) LE not tested due to surgical precautions and limitations. ROM: (please note any abnormalities) WFL while abiding by posterior hip precautions. Sensation: (please note any abnormalities) No paresthesias reported. Other Neuro findings: n/a Bed Mobility: Min assist to lift L) LE in/out of bed in order to avoid excessive abduction while protecting limb. Assistive device: Bed rail Transfers: CGA Assistive Device: Front wheeled walker Gait: CGA x 20' Assistive device: Front wheeled walker Stairs: Assistive device: Timed Up and Go (>12 seconds indicated increased risk for falls): Not yet addressed 10 meter walk test (0.6m/second cannot function independently): n/a Other Objective Measures: n/a ASSESSMENT: After previous R) ROBERT; pt experienced an event that caused her to fracture around the prosthesis. Pt currently is limited with L) ROBERT due to tendon injury noted during surgery and will need to maintain no more than 50% weight bearing with posterior hip precautions and no abductor strengthening, while this injury heals, in addition to the typical ROBERT. Pt would benefit from further rehab to ensure strengthening of all other musculature occurs in a safe and effective manner, while allowing pt to gradually return to greater function within the weight bearing restrictions. Problem List/Current Limitations: Pain, Decreased WB, Decreased strength, Decreased ROM, Decreased balance Short Term Goals: 1. Pt to ambulate 200' with least restrictive device maintaining a step-to gait pattern to ensure no more than 50% weight bearing on L) LE. 2. Pt to be modified indep with supine to/from sit with compliance for ROBERT precautions 3. Pt to be indep with supine, sitting and standing ther ex with exception of abductor strengthening. 4. Pt to be modified indep with sit to/from stand transfers with 50% weight bearing or less. Halfway Goals: Pt to return home with appropriate level of family assistance Patient Goals: Return home Rehabilitation Prognosis: Good Barriers for Discharge: Limitations for weight bearing and strengthening placing hip at risk for injury. PLAN: The patient will benefit from skilled physical therapy services 5 times per week for 2 weeks including: Therapeutic Exercise, Therapeutic Activities, Transfer Training Gait Training, Stair Training, ADL's, Safety Training, Wound Care, Pt/Caregiver Training, Bed Mobility Thank you for this referral. If you have any questions, concerns, or comments about this report or plan, please contact me at . H. Jesi Mendoza, PT, MPT, OMS MTDD
[2018-09-09] MEDS: APAP/HYDROCODONE 325/7.5 TAB PO PRN (23:29)
[2018-09-10 08:20] VITALS: BP 142/74
[2018-09-10] MEDS: ASPIRIN 325 MG TAB PO SCH (08:42)
[2018-09-10] MEDS: OXYBUTYNIN CHL 5 MG TAB PO SCH ×2 (08:42→21:07)
[2018-09-10] MEDS: RANITIDINE HCL 150 MG TAB PO SCH ×2 (08:42→21:07)
[2018-09-10] MEDS: FUROSEMIDE 20 MG TAB PO SCH (08:42)
[2018-09-10] MEDS: APAP/HYDROCODONE 325/7.5 TAB PO PRN ×2 (14:20→22:29)
--- NOTE | 2018-09-10 14:31 | NUR ---
Physical Therapy Impression Pt has been up in chair all AM, agreeable to therapy session. Winter for bed mobility, pt reports that she is limited by pain and fatigue today. SBA fo transfers and ambulation with RW. PT cues for maintenance of 50% WB on L) LE with cues for proximity to walker. Ambulation x150' with short standing rest break in middle of bout, pt demonstrating good overall tolerance to mobility, continue with POC. Physical Therapy Goals 1. Pt to ambulate 200' with least restrictive device maintaining a step-to gait pattern to ensure no more than 50% weight bearing on L) LE. 2. Pt to be modified indep with supine to/from sit with compliance for ROBERT precautions 3. Pt to be indep with supine, sitting and standing ther ex with exception of abductor strengthening. 4. Pt to be modified indep with sit to/from stand transfers with 50% weight bearing or less. Patient's Goals
[2018-09-10 14:55] VITALS: BP 126/67
[2018-09-10] MEDS: LOVASTATIN 20 MG TAB PO SCH (17:31)
[2018-09-10] MEDS: amLODIPine BESYL(*) 5 MG TAB PO SCH (17:31)
[2018-09-11 07:28] VITALS: BP 126/74
[2018-09-11] MEDS: OXYBUTYNIN CHL 5 MG TAB PO SCH ×2 (08:29→21:27)
[2018-09-11] MEDS: RANITIDINE HCL 150 MG TAB PO SCH ×2 (08:29→21:27)
[2018-09-11] MEDS: ASPIRIN 325 MG TAB PO SCH (08:30)
[2018-09-11] MEDS: FUROSEMIDE 20 MG TAB PO SCH (08:30)
[2018-09-11] MEDS: APAP/HYDROCODONE 325/7.5 TAB PO PRN (14:10)
[2018-09-11 15:50] VITALS: BP 135/69
[2018-09-11] MEDS: LOVASTATIN 20 MG TAB PO SCH (17:30)
[2018-09-11] MEDS: amLODIPine BESYL(*) 5 MG TAB PO SCH (17:30)
[2018-09-11] MEDS: MAGNESIUM HYDROXIDE* 30ML UDCP PO PRN (21:27)
[2018-09-12] MEDS: APAP/HYDROCODONE 325/7.5 TAB PO PRN ×2 (03:09→11:59)
[2018-09-12 07:40] VITALS: BP 101/60
[2018-09-12] MEDS: RANITIDINE HCL 150 MG TAB PO SCH ×2 (08:35→21:02)
[2018-09-12] MEDS: OXYBUTYNIN CHL 5 MG TAB PO SCH ×2 (08:35→21:02)
[2018-09-12] MEDS: ASPIRIN 325 MG TAB PO SCH (08:35)
[2018-09-12] MEDS: MAGNESIUM HYDROXIDE* 30ML UDCP PO PRN (08:36)
[2018-09-12] MEDS: FUROSEMIDE 20 MG TAB PO SCH (08:36)
--- NOTE | 2018-09-12 10:20 | Medical Nutrition Therapy ---
Nutrition Anthropometrics Height (Inches): 64 (from previous admit) Weight (Pounds): 177 Weight (Calculated Kilograms): 80.286 BMI: 30.3 Sukumar Nutrition Score: Adequate Sukumar Nutrition Risk Score: 19 Dietary Referral Nutrition Risk Factors: Diff. Swallowing Nutrition Risk Comment: says chokes occasionally (once a month) Physical Findings Physical Appearance: Obese BMI 30-39 Skin Appearance Skin Appearance: Edema Edema Location Modifier: Both Edema Location: Lower Extremity Type of Edema: Degree of Edema: Gastrointestinal Symptoms GI Symtoms: Tube Present: Bowel Sounds: Recent Bowel Pattern: Stool Characteristics: Nutritional Diagnosis Nutritional Risk Acuity 4: Good Appetite Past Medical History: Hx of sleep apnea, 2 PPD 25 Yr Hx, Arthritis, COPD, HTN, Hypercholesterolemia. Nutritional Acuity: Energy Requirement: 1600 (MSJ) Protein Requirement: 80 (1gm/kg) Fluid Requirement: 1600 (1ml/kcal) Diet Type: Diet as Tolerated MICHELLE/REG Nutrition Intervention: Cont diet as ordered, Encourage intake, HS snack Drug: Diuretics Drug/Nutrition Recommendations: Check Serum K+ Nutrition Monitoring & Eval RD Patient Assessment Time: [address] Assessment Type: RD Assessment Patient Nutrition Acuity: 4-Low Follow Up Date: Sep 20, 2018 Nutritional Comment: 09/12 Pt admitted s/p hip replacement. Pt on regular diet and eating 100%. Pt reported occasional (1X/mo) swallowing issues on previous admit but no current issues reported on med unit or ECF unit. Wt is up5.3% ( 177# from 168#). Pt has non pitting edema BLE. Pt is currently on K+ depeting duiretic. Anticipate wt loss when edema resolved. Will cont to monitor and encourage intake. PAT GIRALDO September 12, 2018 10:20
--- NOTE | 2018-09-12 11:25 | NUR ---
Physical Therapy Impression Patient instructed in gait training with FWW ~200 feet with CGA and one standing rest break. Patient was able to perform 50% WB with gait and when resting was able to follow weight bearing status. Patient needed A for pulling oxygen tank. Patient was SBA for transfers. Patient needed review on hip precautions as she was only able to recall no hip flexion past 70. Patient had groin pain before activity. Nursing is going to have the PA look at it. Physical Therapy Goals 1. Pt to ambulate 200' with least restrictive device maintaining a step-to gait pattern to ensure no more than 50% weight bearing on L) LE. 2. Pt to be modified indep with supine to/from sit with compliance for ROBERT precautions 3. Pt to be indep with supine, sitting and standing ther ex with exception of abductor strengthening. 4. Pt to be modified indep with sit to/from stand transfers with 50% weight bearing or less. Patient's Goals
[2018-09-12] MEDS: POLYETHYLENE GLYCOL 17 GM PKT PO SCH (13:10)
--- NOTE | 2018-09-12 14:16 | NUR ---
Occupational Therapy Impression Pt. states that she has multiple reachers at home and has recently acquired a sock aide for home use. Pt. performed total body dressing with use of DME with Mod I. Continue with POC. Occupational Therapy Goals 1. Pt. to perform dressing activities with Mod I. 2. Pt. to perform showering activities with Min A. 3. Pt. to perform toileting activities with Mod I. 4. Pt. to improve Garrett Index of ADL score by 2 points. 5. Pt. to perform light meal prep with I. Patient's Goal
[2018-09-12] MEDS: amLODIPine BESYL(*) 5 MG TAB PO SCH (17:00)
[2018-09-12] MEDS: LOVASTATIN 20 MG TAB PO SCH (17:17)
[2018-09-12 17:22] VITALS: BP 118/68
[2018-09-13] MEDS: APAP/HYDROCODONE 325/7.5 TAB PO PRN ×2 (03:20→14:42)
[2018-09-13 08:20] VITALS: BP 115/65
[2018-09-13] MEDS: FUROSEMIDE 20 MG TAB PO SCH (08:54)
[2018-09-13] MEDS: OXYBUTYNIN CHL 5 MG TAB PO SCH ×2 (08:54→20:26)
[2018-09-13] MEDS: ASPIRIN 325 MG TAB PO SCH (08:54)
[2018-09-13] MEDS: POLYETHYLENE GLYCOL 17 GM PKT PO SCH (08:54)
[2018-09-13] MEDS: RANITIDINE HCL 150 MG TAB PO SCH ×2 (08:54→20:26)
--- NOTE | 2018-09-13 12:27 | NUR ---
Occupational Therapy Impression Mod (I) ambulation x100ft with RW. Independent UB dressing. Mod (I) LB dressing. Independent grooming seated and standing sink front. Pt progressing well towards goals. Recommend Home Health upon discharge home. Occupational Therapy Goals 1. Pt. to perform dressing activities with Mod I. 2. Pt. to perform showering activities with Min A. 3. Pt. to perform toileting activities with Mod I. 4. Pt. to improve Garrett Index of ADL score by 2 points. 5. Pt. to perform light meal prep with I. Patient's Goal
--- NOTE | 2018-09-13 15:04 | NUR ---
Dr Rojas's office called regarding discharge on Wednesday. It was also passed on about the the left inner is itz and swollen, and asking if Doctor could stop and see her before discharge.
[2018-09-13] MEDS ORDERED: GLYC1DRO2 OU (16:04)
[2018-09-13 16:45] VITALS: BP 148/75
[2018-09-13] MEDS: amLODIPine BESYL(*) 5 MG TAB PO SCH (17:42)
[2018-09-13] MEDS: LOVASTATIN 20 MG TAB PO SCH (17:42)
--- NOTE | 2018-09-13 17:42 | NUR ---
Physical Therapy Impression Pt has met goal of ramp to access home and does not have stairs to address. Pt demos understanding of appropriate continuance of weight bearing restriction with 50% on involved LE only. Will address further HEP as tolerated with the exception of straight leg raise or hip abduction to adhere to post-op precautions per surgeon. Physical Therapy Goals 1. Pt to ambulate 200' with least restrictive device maintaining a step-to gait pattern to ensure no more than 50% weight bearing on L) LE. 2. Pt to be modified indep with supine to/from sit with compliance for ROBERT precautions 3. Pt to be indep with supine, sitting and standing ther ex with exception of abductor strengthening. 4. Pt to be modified indep with sit to/from stand transfers with 50% weight bearing or less. Patient's Goals
[2018-09-14] MEDS: APAP/HYDROCODONE 325/7.5 TAB PO PRN ×2 (02:20→20:43)
[2018-09-14 06:06] LABS: PLATELET COUNT, AUTOMATED 347 K/uL (150-450)
[2018-09-14 08:01] VITALS: BP 121/68
[2018-09-14] MEDS: POLYETHYLENE GLYCOL 17 GM PKT PO SCH (08:46)
[2018-09-14] MEDS: ASPIRIN 325 MG TAB PO SCH (08:46)
[2018-09-14] MEDS: OXYBUTYNIN CHL 5 MG TAB PO SCH ×2 (08:46→20:43)
[2018-09-14] MEDS: RANITIDINE HCL 150 MG TAB PO SCH ×2 (08:46→20:43)
[2018-09-14] MEDS: FUROSEMIDE 20 MG TAB PO SCH (09:00)
--- NOTE | 2018-09-14 13:57 | Hospitalist Progress Note ---
Physical Exam Vital Signs Date Time Temp Pulse Resp B/P (MAP) Pulse Ox O2 Delivery O2 Flow Rate FiO2 09/14/18 10:00 92 Nasal Cannula 2.0 09/14/18 08:01 98.1 80 13 121/68 (85) Intake and Output 09/14/18 07:00 Intake Total 360 ml Balance 360 ml Intake Oral 360 ml # Voids 8 Result Diagram: 09/14/1851409/14/18514 Assessment and Plan Problems: (1) Status post hip replacement Status: Acute Assessment & Plan: Doing well. On ASA 325mg daily for DVT prophylaxis. Incision is slightly red and draining but improving with less drainage daily. Dr. Rojas looked at the wound 09/13. He will see he again in the office after discharge on 09/19. (2) Hyperlipemia Status: Chronic Assessment & Plan: Continue chronic simvastatin. (3) HTN (hypertension) Status: Chronic Assessment & Plan: Continue chronic amlodipine with hold parameters. Lasix also ordered with hold parameters. (4) OAB (overactive bladder) Status: Chronic Assessment & Plan: Continue chronic oxybutynin. Time Spent on Plan of Care: < 30 min Problem Qualifiers (1) Status post hip replacement: Laterality: left Qualified Codes: Z96.642 - Presence of left artificial hip joint KOREY BOWMAN MD September 14, 2018 13:57
[2018-09-14] MEDS ORDERED: ASPI-757 PO (13:59)
--- NOTE | 2018-09-14 14:06 | Hospitalist Depart ---
Discharge Summary Reason for Hosp/Final Diag: (1) Status post hip replacement Status: Acute Hospital Course & Plan: The patient was transferred to [facility] for ongoing rehab after L hip replacement. She was placed on ASA 325mg daily for DVT prophylaxis. Incision was slightly red and draining but improving with less drainage daily at discharge. Dr. Rojas looked at the wound 09/13. He will see her again in the office after discharge on 09/19. (2) Hyperlipemia Status: Chronic Hospital Course & Plan: She was continued on chronic simvastatin. (3) HTN (hypertension) Status: Chronic Hospital Course & Plan: She was continued on her chronic amlodipine with hold parameters. Lasix was also ordered with hold parameters on ECF. (4) OAB (overactive bladder) Status: Chronic Hospital Course & Plan: She was continued on chronic oxybutynin. Departure Weight (Pounds): 177 Weight (Ounces): 2.0 Result Diagram: 09/14/1851409/14/18514 Condition: Improved Discharge: Home, Home Health PT/OT Follow Up For: PT For Surgical Rehab, OT For ADL's Home Health RN Follow Up For: Nursing Assessment, Other Home Health LEAD SYSTEMS ARCHITECT Follow Up For: ADL Assistance Time Spent: < 30 min Discharge Instructions Home Meds Reported Medications Glycerin/Propylene Glycol (SOOTHE LUBRICANT EYE DROPS) 1 Each Droperette, 1 DROP OU DAILY 09/13/18 Meloxicam (MELOXICAM) 15 Mg Tablet, 1 TAB PO DAILY 09/06/18 Famotidine (PEPCID) 20 Mg Tablet, 20 MG PO PRN PRN for HEARTBURN, #10 TAB 08/31/18 Lovastatin (LOVASTATIN) 40 Mg Tablet, 40 MG PO QPM 03/23/18 Amlodipine Besylate (AMLODIPINE BESYLATE) 5 Mg Tablet, 5 MG PO QPM, TAB 03/23/18 Furosemide (FUROSEMIDE) 20 Mg Tablet, 20 MG PO QAM, TAB 03/23/18 Cranberry (CRANBERRY) 400 Mg Capsule, CAPSULE 03/23/18 Cholecalciferol (Vitamin D3) (VITAMIN D) 2,000 Unit Capsule, 2000 UNIT PO DAILY, CAPSULE 03/23/18 Activated Charcoal (Charcocaps) 260 Mg Capsule, PRN PRN for GAS 03/23/18 [place]-3 Fatty Acids/Fish Oil (FISH OIL 1,000 MG CAPSULE) 1 Each Capsule, 2 EACH PO, CAPSULE 03/23/18 Oxybutynin Chloride (OXYBUTYNIN CHLORIDE) 5 Mg Tablet, 5 MG PO BID, TAB 03/08/18 Cetirizine Hcl (ZYRTEC) 10 Mg Capsule, 10 MG PO PRN, CAPSULE 03/04/18 Follow up Referrals: Orthopedics - In One Week @ [facility] Diet: Regular Activity: As Tolerated Special Instructions: Keep appointment with Dr. Rojas on September 19 for recheck. Copies to: ALESIA ROJAS MD; LANE ERWIN PA-C ; Venous Thromboembolism Antithrombotics Is Pt On Any Antithrombotics?: Yes (ASA 325 mg daily for DVT prophylaxis.) [id number] Certification Face to Face Home Health Certification Patient's Primary Care Provider: Lane Erwin Pa-C Institutional Provider conducted the [id number] encounter. Electronic Undersigning Physician Certifies Home Health. I certify that the patient has been under my care and that I had a [id number] encounter that meets the physician [id number] encounter requirements with this patient. This patient is home-bound due to safety issues and continues to require assistance with ADL's. I certify that based on my findings, that Nursing, Aides and the following Home Health services are medically necessary:PT and OT Medical Necessity: Nursing, Rehab Date Face to Face Conducted: September 14, 2018 Problem Qualifiers (1) Status post hip replacement: Laterality: left Qualified Codes: Z96.642 - Presence of left artificial hip j KOREY Guerrero MD September 14, 2018 14:06
--- NOTE | 2018-09-14 16:53 | NUR ---
Physical Therapy Impression Pt understands importance of use of leg able seaman to minimize strain at tendon during hip abduction to lift into bed. Pt notes that she does have a leg able seaman available at home as well. Once supine, pt participated in review of supine ther ex. Pt is indep with all allowed exercises x 10 reps each, with the exception of heel slide, which she continues to require some assistance with to minimize strain and ensure no IR/ER during hip flexion. Physical Therapy Goals 1. Pt to ambulate 200' with least restrictive device maintaining a step-to gait pattern to ensure no more than 50% weight bearing on L) LE. 2. Pt to be modified indep with supine to/from sit with compliance for ROBERT precautions 3. Pt to be indep with supine, sitting and standing ther ex with exception of abductor strengthening. 4. Pt to be modified indep with sit to/from stand transfers with 50% weight bearing or less. Patient's Goals
[2018-09-14 16:55] VITALS: BP 149/70
[2018-09-14] MEDS: LOVASTATIN 20 MG TAB PO SCH (17:09)
[2018-09-14] MEDS: amLODIPine BESYL(*) 5 MG TAB PO SCH (17:10)
[2018-09-15 08:00] VITALS: BP 143/73
[2018-09-15] MEDS: OXYBUTYNIN CHL 5 MG TAB PO SCH ×2 (08:37→20:34)
[2018-09-15] MEDS: RANITIDINE HCL 150 MG TAB PO SCH ×2 (08:37→20:34)
[2018-09-15] MEDS: ASPIRIN 325 MG TAB PO SCH (08:37)
[2018-09-15] MEDS: POLYETHYLENE GLYCOL 17 GM PKT PO SCH (08:38)
[2018-09-15] MEDS: FUROSEMIDE 20 MG TAB PO SCH (08:39)
[2018-09-15] MEDS: APAP/HYDROCODONE 325/7.5 TAB PO PRN ×2 (08:40→22:25)
--- NOTE | 2018-09-15 10:11 | NUR ---
5-day and DC MDS completed with pt. C: 15, D: 02, E: no concerns, Q: plan to return to community, referral made for [facility]. No other DC needs identified.
--- NOTE | 2018-09-15 13:55 | NUR ---
Occupational Therapy Impression UB ther ex HEP seated. Mod (I) toileting. Independent grooming sink front. Mod (I) UB/LB dressing. Pt nearing OT goals. Plan for discharge home Wednesday with HH services. Occupational Therapy Goals 1. Pt. to perform dressing activities with Mod I. 2. Pt. to perform showering activities with Min A. 3. Pt. to perform toileting activities with Mod I. 4. Pt. to improve Garrett Index of ADL score by 2 points. 5. Pt. to perform light meal prep with I. Patient's Goal
[2018-09-15 17:00] VITALS: BP 123/67
[2018-09-15] MEDS: amLODIPine BESYL(*) 5 MG TAB PO SCH (17:10)
[2018-09-15] MEDS: LOVASTATIN 20 MG TAB PO SCH (17:10)
--- NOTE | 2018-09-15 19:10 | NUR ---
Physical Therapy Impression Pt agreeable to ther ex in sitting position. Pt encouraged to complete these exercises in chair with back support and recline somewhat for LAQ as well as for hip flexion on R). Hip flexion on L) LE contraindicated with posterior ROBERT precautions unless greatly reclined. Physical Therapy Goals 1. Pt to ambulate 200' with least restrictive device maintaining a step-to gait pattern to ensure no more than 50% weight bearing on L) LE. 2. Pt to be modified indep with supine to/from sit with compliance for ROBERT precautions 3. Pt to be indep with supine, sitting and standing ther ex with exception of abductor strengthening. 4. Pt to be modified indep with sit to/from stand transfers with 50% weight bearing or less. Patient's Goals
[2018-09-16 08:00] VITALS: BP 151/79
[2018-09-16] MEDS: ASPIRIN 325 MG TAB PO SCH (08:51)
[2018-09-16] MEDS: FUROSEMIDE 20 MG TAB PO SCH (08:51)
[2018-09-16] MEDS: OXYBUTYNIN CHL 5 MG TAB PO SCH ×2 (08:51→20:24)
[2018-09-16] MEDS: RANITIDINE HCL 150 MG TAB PO SCH ×2 (08:51→20:24)
[2018-09-16] MEDS: POLYETHYLENE GLYCOL 17 GM PKT PO SCH (09:00)
[2018-09-16] MEDS: APAP/HYDROCODONE 325/7.5 TAB PO PRN ×2 (09:01→22:36)
--- NOTE | 2018-09-16 11:42 | NUR ---
OCCUPATIONAL THERAPY Dressing Assistance: Mod (I) Dressing Aid Required: Business Trainer,Sock Aid Bathing Assistance: Mod (I) Bathing Equipment: Shower Chair, Long Handled Protection Home Assessment: Not Completed Feeding Assistance: Independent Feeding Specialized Equipment: None Toilet Use: Modified I/ AE Verbalizes Needs: Yes Understands Precautions: Yes Cooperative: Yes Family Teaching: No Occupational Therapy Comment:
--- NOTE | 2018-09-16 11:42 | NUR ---
Occupational Therapy Impression Skilled OT goals met. Pt with no further questions/concerns to address with OT at this time. Plan for discharge home tomorrow with services. Occupational Therapy Goals 1. Pt. to perform dressing activities with Mod I. 2. Pt. to perform showering activities with Min A. 3. Pt. to perform toileting activities with Mod I. 4. Pt. to improve Garrett Index of ADL score by 2 points. 5. Pt. to perform light meal prep with I. Patient's Goal
--- NOTE | 2018-09-16 11:47 | OT ECF NOTE ---
Type of Note: Discharge Note Primary Medical Diagnosis: L ROBERT (50% weight bearing in R LE and posterior hip precautions) Occupational Therapy Evaluation Date: 09-09-18 SUBJECTIVE: Prior Hospitalization: L ROBERT surgery on 09-06-18 [facility] Surgical floor until 09-09-18 Prior Level of Function: Independent with all activities with exception of grocery shopping (daughter) Prior Living Status: Single level house Alone Assist by family Community Services: None Home Accessibility: Ramp All needs on one level Walk-in shower Equipment Owned: Front wheeled walker Toilet riser Tub/shower chair Medical Complications/Past Medical History: Please refer to chart for details. Psychosocial Support: Supportive daughter in [place]. 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 WFL WFL (5= normal, 4= good, 3= fair, 2= poor, 1= trace) Functional Transfer: Assistive Device: Front wheeled walker Transfer Ability: Modified Independent ADL: Upper body dressing: Assistive device: None Upper body dressing ability: Independent Lower body dressing: Assistive device: Administrative Analyst/Sock aid Lower body dressing ability: Modified Independent Toileting: Assistive device: Raised toilet seat, Grab rails Toileting ability: Modified Independent Grooming/hygiene: Standing Assistive device: None Grooming ability: Independent Bathing: Assistive device: Shower chair Bathing ability: Modified Independent Standardized Assessment: Garrett Index of Activities of Daily Living- Pt. scored 12/20 on this index upon Initial Eval. 18/20 upon discharge (09/16/17). ASSESSMENT: Pt. is a 77 year old female who underwent a Left ROBERT of Dr. Rojas on 09/06/18. Pt. is currently 50% weight bearing on RLE and has posterior hip precautions. Pt. resides alone in [place], [place] in one level home as was Independent with all ADL/ IADL activities, with the exception of assistance from her daughter for grocery shopping. Pt. has met all skilled OT goals and presents with no further questions/concerns to address with OT at this time. Short Term Goals: 1. Pt. to perform dressing activities with Mod I. GOAL MET 2. Pt. to perform showering activities with Min A. GOAL MET 3. Pt. to perform toileting activities with Mod I. GOAL MET 4. Pt. to improve Garrett Index of ADL score by 2 points. GOAL MET 5. Pt. to perform light meal prep with I. 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 Patient Goals: Return home. Rehabilitation Prognosis: Good Barriers to Discharge: Pt. lives alone. PLAN: The patient will discharge home 09/17/18 with services. Thank you for this referral. If you have any questions, concerns, or comments about this report or plan, please contact me at . Leigh Ann Contreras MS, OTR/L Occupational Therapist ZORAIDA
--- NOTE | 2018-09-16 15:54 | NUR ---
Physical Therapy Impression Pt agreeable to ther ex in standing and TUG test. Pt notes that she is feeling confident and safe with her mobility and has good pain management currently. Pt indicates that she does have a leg station chief at home to ensure safety with bed mobility. PT goals met with distance ambulation, up/down ramp to simulate entry to home and instruction with handouts for supine, seated and standing ther ex. Pt completed TUG test in 38 seconds demonstrating appropriate safety awareness to maintain 50% weight bearing on L) LE and perform a step-to pattern to ensure this precaution. Physical Therapy Goals 1. Pt to ambulate 200' with least restrictive device maintaining a step-to gait pattern to ensure no more than 50% weight bearing on L) LE. 2. Pt to be modified indep with supine to/from sit with compliance for ROBERT precautions 3. Pt to be indep with supine, sitting and standing ther ex with exception of abductor strengthening. 4. Pt to be modified indep with sit to/from stand transfers with 50% weight bearing or less. Patient's Goals
--- NOTE | 2018-09-16 15:54 | NUR ---
PHYSICAL THERAPY INFORMATION TRANSFER SHEET BED MOBILITY: Modified I/ AE TRANSFERS: Independent GAIT: 200 ' with O2 RW and Modified I/ AE Weightbearing Status: Partial weight bearing; 50% on L) LE. *No abduction strengthening* *posterior hip replacement precautions* STAIRS: No stairs; Pt is modified indep with up/down ramp using FWW and proper precautions. EXERCISES: hand outs for supine, seated and standing ther ex provided. No hip abduction strengthening and no hip flexion greater than 70 degrees. Verbalizes Needs: Yes Understands Directions Yes Cooperative: Yes Family Teaching: No Physical Therapy Comment: Pt plans to have [facility] services to assist with gentle progression within precautions.
[2018-09-16 16:01] VITALS: BP 126/67
[2018-09-16] MEDS: amLODIPine BESYL(*) 5 MG TAB PO SCH (16:26)
[2018-09-16] MEDS: LOVASTATIN 20 MG TAB PO SCH (16:26)
--- NOTE | 2018-09-16 18:31 | PT ECF NOTE ---
Type of Note: Discharge Note Primary Medical Diagnosis: L) ROBERT (50% weight bearing in R) LE; no abductor strengthening and posterior hip precautions) Physical Therapy Evaluation Date: 09-09-18 SUBJECTIVE: Prior Hospitalization: L) ROBERT surgery on 09-06-18 [facility] Surgical floor until 09-09-18 Prior Level of Function: Independent with all activities with exception of grocery shopping (daughter) Prior Living Status: Single level house, Alone, Assist by family Community Services: Home Accessibility: Ramp, All needs on one level, Walk-in shower Equipment Owned: Front wheeled walker, Toilet riser, Tub/shower chair Medical Complications/Past Medical History: Please refer to chart for details. Psychosocial Support: Supportive daughter in [place]. Pain Scale (0-10): 0/10 OBJECTIVE: Strength: R) LE 4/5 overall; L) LE 3-/5 with functional mobility; pt encouraged to use leg camera systems engineer for protection to avoid hip abduction strain with bed mobility. ROM: (please note any abnormalities) WFL while abiding by posterior hip precautions. Sensation: (please note any abnormalities) No paresthesias reported. Other Neuro findings: n/a Bed Mobility: Mod indep with leg camera systems engineer to raise L) LE in/out of bed in order to avoid excessive abduction while protecting limb. Assistive device: leg camera systems engineer Transfers: Indep Assistive Device: Front wheeled walker Gait: Indep x 200' Assistive device: Front wheeled walker Stairs: Ramp to access home with modified indep Assistive device: FWW Timed Up and Go (>12 seconds indicated increased risk for falls): 38 seconds with proper step-to gait pattern to ensure 50% weight bearing on L) LE 10 meter walk test (0.6m/second cannot function independently): n/a Other Objective Measures: n/a ASSESSMENT: After previous R) ROBERT; pt experienced an event that caused her to fracture around the prosthesis. Pt currently is limited with L) ROBERT due to tendon injury noted during surgery and will need to maintain no more than 50% weight bearing with posterior hip precautions and no abductor strengthening, while this injury heals, in addition to the typical ROBERT. Pt would benefit from further [facility] rehab to ensure strengthening of all other musculature occurs in a safe and effective manner, while allowing pt to gradually return to greater function within the weight bearing restrictions. Pt is currently at a safe level for basic ADL's to return home indep with progression addressed by [facility] services. Problem List/Current Limitations: Pain, Decreased WB, Decreased strength, Decreased ROM, Decreased balance Short Term Goals: (Met) 1. Pt to ambulate 200' with least restrictive device maintaining a step-to gait pattern to ensure no more than 50% weight bearing on L) LE. 2. Pt to be modified indep with supine to/from sit with compliance for ROBERT precautions 3. Pt to be indep with supine, sitting and standing ther ex with exception of abductor strengthening. 4. Pt to be modified indep with sit to/from stand transfers with 50% weight bearing or less. Long-Term Goals: Pt to return home with appropriate level of family assistance- Met Patient Goals: Return home Rehabilitation Prognosis: Good Barriers for Discharge: Limitations for weight bearing and strengthening placing hip at risk for injury. PLAN: Pt plans to d/c home tomorrow with goals met today. Pt to be indep in room for this evening and tomorrow morning but to call for assistance as desired. Pt to [facility] services to gradually advance activities as allowed by surgeon. Thank you for this referral. If you have any questions, concerns, or comments about this report or plan, please contact me at . h. Jesi Mendoza, PT, MPT, OMS [id number]
[2018-09-17 07:20] VITALS: BP 155/81
[2018-09-17] MEDS: FUROSEMIDE 20 MG TAB PO SCH (08:52)
[2018-09-17] MEDS: POLYETHYLENE GLYCOL 17 GM PKT PO SCH (08:56)
[2018-09-17] MEDS: ASPIRIN 325 MG TAB PO SCH (08:59)
[2018-09-17] MEDS: RANITIDINE HCL 150 MG TAB PO SCH (08:59)
[2018-09-17] MEDS: OXYBUTYNIN CHL 5 MG TAB PO SCH (08:59)
== END 2018-09-17 14:35 | disposition home health service (06) | DRG 561 ==
LOC: ECF 11:17
PROVIDERS: ADMIT Internal Medicine; ATTEND Internal Medicine
DX: Z47.1 Aftercare following joint replacement surgery (principal); I10 Essential (primary) hypertension; N32.81 Overactive bladder; Z90.49 Acquired absence of other specified parts of digestive tract; Z96.643 Presence of artificial hip joint, bilateral; E78.5 Hyperlipidemia, unspecified
CPT/HCPCS: 36415; 82040; 82247; 82310; 82374; 82435; 82565; 82947; 84075; 84132; 84155; 84295; 84450; 84460; 84520; 85025; 97161; 97165